=== PATIENT | male | born 1985 | race Caucasian/White ===

== ENCOUNTER 2016-08-19 14:15 | Emergency (ER) | payer MEDICARE, MEDICAID ==
--- NOTE | 2016-08-19 14:39 | ER Document Report ---
ED Medical Screen (RME) - General Stated Complaint: FELL/SHOULDER PAIN Time seen by provider: 14:36 Mode of Arrival: Ambulatory Information source: Patient Notes: 31 yo male slipped going down steps yesterday, fell onto right shoulder, caused increased pain in his bad left shoulder, right shoulder (new) and right thumb. Points to right 1st MCP. TRAVEL OUTSIDE OF THE [place] IN LAST 30 DAYS: No - Related Data Allergies/Adverse Reactions: No Known Allergies Allergy (Verified 08/19/16 14:35) Past Medical History - Immunizations Immunizations up to date: Yes Hx Diphtheria, Pertussis, Tetanus Vaccination: No
--- NOTE | 2016-08-19 16:09 | ER Document Report ---
ED General - General Chief Complaint: Shoulder Pain Stated Complaint: FELL/SHOULDER PAIN Mode of Arrival: Ambulatory Information source: Patient Notes: 31-year-old male presents with complaints of bilateral shoulder pain and thumb pain after a mechanical fall yesterday. Patient notes he has had surgery on his shoulder before denies any neurological deficits denies any weakness numbness TRAVEL OUTSIDE OF THE [place] IN LAST 30 DAYS: No - HPI Onset: Yesterday Onset/Duration: Sudden Quality of pain: Achy Severity: Mild Pain Level: 1 Associated symptoms: Allergy/hay fever Exacerbated by: Movement Relieved by: Denies Similar symptoms previously: Yes Recently seen / treated by doctor: No - Related Data Allergies/Adverse Reactions: No Known Allergies Allergy (Verified 08/19/16 14:35) Past Medical History - General Information source: Patient - Social History Smoking Status: Unknown if Ever Smoked Cigarette use (# per day): No Chew tobacco use (# tins/day): No Smoking Education Provided: No Frequency of alcohol use: Occasional Drug Abuse: None Family History: Reviewed & Not Pertinent Patient has suicidal ideation: No Patient has homicidal ideation: No - Immunizations Immunizations up to date: Yes Hx Diphtheria, Pertussis, Tetanus Vaccination: No Review of Systems - Review of Systems Notes: REVIEW OF SYSTEMS: CONSTITUTIONAL : Denies fever, chills, or sweats. Denies recent illness. EENT: Denies eye, ear, throat, or mouth pain or symptoms. Denies nasal or sinus congestion or discharge. Denies throat, tongue, or mouth swelling or difficulty swallowing. CARDIOVASCULAR: Denies chest pain. Denies palpitations or racing or irregular heart beat. Denies ankle edema. RESPIRATORY: Denies cough, cold, or chest congestion. Denies shortness of breath, difficulty breathing, or wheezing. GASTROINTESTINAL: Denies abdominal pain or distention. Denies nausea, vomiting , or diarrhea. Denies blood in vomitus, stools, or per rectum. Denies black, tarry stools. Denies constipation. GENITOURINARY: Denies difficulty urinating, painful urination, burning, frequency, blood in urine, or discharge. MUSCULOSKELETAL: Admits to bilateral shoulder pain hand pain SKIN: Denies rash, lesions or sores. HEMATOLOGIC : Denies easy bruising or bleeding. LYMPHATIC: Denies swollen, enlarged glands. NEUROLOGICAL: Denies confusion or altered mental status. Denies passing out or loss of consciousness. Denies dizziness or lightheadedness. Denies headache. Denies weakness or paralysis or loss of use of either side. Denies problems with gait or speech. Denies sensory loss, numbness, or tingling. Denies seizures. PSYCHIATRIC: Denies anxiety or stress. Denies depression, suicidal ideation, or homicidal ideation. ALL OTHER SYSTEMS REVIEWED AND NEGATIVE. Dictation was performed using [employer] voice recognition software PHYSICAL EXAMINATION: GENERAL: Well-appearing, well-nourished and in no acute distress. HEAD: Atraumatic, normocephalic. EYES: Pupils equal round and reactive to light, extraocular movements intact, sclera anicteric, conjunctiva are normal. ENT: Nares patent, oropharynx clear without exudates. Moist mucous membranes. NECK: Normal range of motion, supple without lymphadenopathy LUNGS: Breath sounds clear to auscultation bilaterally and equal. No wheezes rales or rhonchi. HEART: Regular rate and rhythm without murmurs ABDOMEN: Soft, nontender, nondistended abdomen. No guarding, no rebound. No masses appreciated. Musculoskeletal: Mild decreased range of motion of bilateral shoulders secondary to pain no deformities noted NEUROLOGICAL: Cranial nerves grossly intact. Normal speech, normal gait. Normal sensory, motor exams PSYCH: Normal mood, normal affect. SKIN: Warm, Dry, normal turgor, no rashes or lesions noted. Physical Exam - Vital signs Vitals: Temp Pulse Resp BP Pulse Ox 98.2 F 71 17 131/80 H 99 08/19/16 14:37 08/19/16 14:37 08/19/16 14:37 08/19/16 14:37 08/19/16 14:37 Course - Re-evaluation Re-evalutation: 08/19/16 16:09 Physical examination noted no significant abnormality, x-rays are normal. Patient will be given follow-up with orthopedics and is otherwise stable for discharge After performing a Medical Screening Examination, I estimate there is LOW risk for INTRACRANIAL HEMORRHAGE, UNSTABLE SPINE FRACTURE, CENTRAL CORD SYNDROME, CAUDA EQUINA, THORACIC AORTIC DISSECTION, PNEUMOTHORAX, PERFORATED BOWEL, RUPTURED ABDOMINAL AORTIC ANEURYSM, ACUTE TENDON RUPTURE, COMPARTMENT SYNDROME, or OPEN FRACTURE, thus I consider the discharge disposition reasonable. Also, there is no evidence or peritonitis, sepsis, or toxicity. The patient and I have discussed the diagnosis and risks, and we agree with discharging home to follow-up with their primary doctor with the understanding that symptoms and presentations can change. We also discussed returning to the Emergency Department immediately if new or worsening symptoms occur. We have discussed the symptoms which are most concerning (e.g., bloody stool, fever, changing or worsening pain, vomiting) that necessitate immediate return. - Vital Signs Vital signs: Temp Pulse Resp BP Pulse Ox 98.2 F 71 17 131/80 H 99 08/19/16 14:37 08/19/16 14:37 08/19/16 14:37 08/19/16 14:37 08/19/16 14:37 Discharge - Discharge Clinical Impression: Hand pain, right Shoulder pain Qualifiers: Laterality: bilateral Chronicity: acute Qualified Code(s): M25.511 - Pain in right shoulder; M25.512 - Pain in left shoulder Condition: Stable Disposition: HOME, SELF-CARE Additional Instructions: Shoulder Injury You have injured your shoulder. This usually results from stretching or tearing of the tendons during trauma. Time and protection are required in order to heal properly. Many injuries are quite disabling, and should be taken seriously. Initial treatment includes cold packs and a sling to rest the shoulder. The physician has assessed the seriousness of your injury, and has outlined a treatment plan. Understand that this treatment may change, depending on how you progress. If a re-examination was recommended, it is important that you follow up as instructed. Some shoulder injuries (such as partial tear of the rotator cuff) are only suspected after you've failed to improve. Call us if there's severe pain, numbness, or loss of function. Prescriptions: Hydrocodone/Acetaminophen [[place] 5-325 mg Tablet] 1 tab PO Q6 #8 tablet Referrals: ANN-MARIE BUNDY DO [ACTIVE STAFF] - Follow up tomorrow
[2016-08-19 16:28] VITALS: BP 139/85
== END 2016-08-19 16:26 | disposition home or self-care (01) ==
LOC: ER 14:15
DX: M25.511 Pain in right shoulder (principal); M25.512 Pain in left shoulder; M79.644 Pain in right finger(s); W19.XXXA Unspecified fall, initial encounter; Z98.890 Other specified postprocedural states
CPT/HCPCS: 99283

== ENCOUNTER 2017-04-07 09:50 | Emergency (ER) | payer MEDICARE, MEDICAID ==
[2017-04-07 10:01] VITALS: BP 155/103
--- NOTE | 2017-04-07 10:13 | ER Document Report ---
HPI - HPI Patient complains to provider of: 1.: I need my ears checked, #2: I want to be tested for a needlestick Onset: Other Severity: None Pain Level: 4 Associated Symptoms: None Exacerbated by: Denies Relieved by: Denies Notes: Patient is a 31-year-old male with history of paranoid schizophrenia. Patient presents with several concerns. #1: He was poked by needle and is concerned about that, #2: He wants his ears checked, #3: He needs to speak with someone regarding witnessing a traumatic event, #4: He believes he is consuming water with parasites. He is not suicidal. He is not homicidal. - ROS ROS below otherwise negative: Yes - DERM Skin Color: Normal Past Medical History - Social History Smoking Status: Current Every Day Smoker Family History: Reviewed & Not Pertinent Patient has suicidal ideation: No Patient has homicidal ideation: No Renal/ Medical History: Denies: Hx Peritoneal Dialysis - Immunizations Immunizations up to date: Yes Hx Diphtheria, Pertussis, Tetanus Vaccination: No Vertical Provider Document - CONSTITUTIONAL Agree With Documented VS: Yes General Appearance: WD/WN, No Apparent Distress - INFECTION CONTROL TRAVEL OUTSIDE OF THE [place] IN LAST 30 DAYS: No - HEENT HEENT: Atraumatic, Normocephalic. negative: Pharyngeal Erythema, Tympanic Membrane Red, Tympanic Membrane Bulging - RESPIRATORY Respiratory: Breath Sounds Normal O2 Sat by Pulse Oximetry: 99 - CARDIOVASCULAR Cardiovascular: Regular Rate - GI/ABDOMEN Gastrointestinal: Abdomen Soft, Abdomen Non-Tender - MUSCULOSKELETAL/EXTREMETIES Musculoskeletal/Extremeties: MAEW, FROM - NEURO Level of Consciousness: Awake, Alert, Appropriate - DERM Notes: There is no visible needlestick noted to his fingertips Course - Re-evaluation Re-evalutation: 04/07/17 10:11 Physical examination is unremarkable. There is no indication for any further intervention at this time. Discussed need for primary care, mental health, and/ or health department evaluation for his various complaints. - Vital Signs Vital signs: Temp Pulse Resp BP Pulse Ox 99.2 F 107 H 16 155/103 H 99 04/07/17 09:58 04/07/17 09:58 04/07/17 09:58 04/07/17 09:58 04/07/17 09:58 Discharge - Discharge Clinical Impression: Otalgia Condition: Good Disposition: HOME, SELF-CARE Instructions: Normal Exam and Workup ([facility]) Additional Instructions: Follow-up with your primary care provider, mental health provider, and/or the health department. Referrals: [facility] [Provider Group] - Follow up as needed
== END 2017-04-07 10:24 | disposition home or self-care (01) ==
LOC: ER 09:50
DX: H92.09 Otalgia, unspecified ear (principal); F17.200 Nicotine dependence, unspecified, uncomplicated
CPT/HCPCS: 99284

== ENCOUNTER 2017-04-07 11:08 | Emergency (ER) | payer MEDICARE, MEDICAID ==
--- NOTE | 2017-04-07 11:10 | ER Document Report ---
ED Psych Disorder / Suicide - General Mode of Arrival: Ambulatory Information source: Patient, Parent - mother - HPI Patient complains to provider of: Hallucinating Associated symptoms: Other - see above <QUINTIN SILVA - Last Filed: 04/07/17 13:37> <VALERIO JEWELL - Last Filed: 04/07/17 13:49> - General Stated Complaint: PSYCH EVALUATION Notes: Patient is a 31 year old male who presents to the ED for evaluation. Patient was seen and evaluated up front in triage and was discharged home. He had come with concern for a needle stick and ear pain that he had been complaining of for a few days. Upon discharge patient became erratic. Patient has a history of paranoia schizophrenia and is off of his meds, he refused to take any medication due to them making him lethargic. Patient has not slept in several days. Patients mother arrived and verified the patient being stuck by a needle. Patient was living with a man who was dying and apparently under hospice care. Patient states that he is also living around drug addicts who steal. He is paranoid about what is going on around him, describing both auditory and visual hallucinations. Patient is living in this home temporarily until they are able to deal with a court situation and move somewhere else. At this time patient is in a very manic state. (QUINTIN SILVA) - Related Data Allergies/Adverse Reactions: No Known Allergies Allergy (Verified 04/07/17 09:58) Home Medications: Current Home Medications No Home Medications 04/07/17 [History] Past Medical History - General Information source: Patient, Parent - mother - Social History Smoking Status: Unknown if Ever Smoked Family History: Reviewed & Not Pertinent Renal/ Medical History: Denies: Hx Peritoneal Dialysis Psychiatric Medical History: Reports: Hx Schizophrenia - with paranoia - Immunizations Immunizations up to date: Yes Hx Diphtheria, Pertussis, Tetanus Vaccination: No <QUINTIN SILVA - Last Filed: 04/07/17 13:37> Review of Systems - Review of Systems Constitutional: See HPI, Other - needle stick EENT: See HPI, Ear pain Cardiovascular: No symptoms reported Respiratory: No symptoms reported Gastrointestinal: No symptoms reported Genitourinary: No symptoms reported Male Genitourinary: No symptoms reported Musculoskeletal: No symptoms reported Skin: No symptoms reported Hematologic/Lymphatic: No symptoms reported Neurological/Psychological: See HPI, Other - paranoia <QUINTIN SILVA - Last Filed: 04/07/17 13:37> Physical Exam - General General appearance: Alert - HEENT Head: Normocephalic, Atraumatic Eyes: Normal Extraocular movements intact: Yes Pupils: PERRL Tympanic membrane: Normal - Respiratory Respiratory status: No respiratory distress - Cardiovascular Rhythm: Regular - Abdominal Distension: No distension - Back Back: Normal - Extremities General upper extremity: Normal inspection, Normal ROM General lower extremity: Normal inspection, Normal ROM - Neurological Neuro grossly intact: Yes - Psychological Associated symptoms: Auditory hallucinations, Paranoid, Tangential speech - Skin Skin Temperature: Warm Skin Moisture: Dry Skin Color: Normal <ARJUN SILVAANDRA - Last Filed: 04/07/17 13:37> - Vital signs Vitals: Temp Pulse Resp BP Pulse Ox 98.8 F 70 16 141/82 H 70 L 04/07/17 11:57 04/07/17 11:57 04/07/17 11:57 04/07/17 11:57 04/07/17 11:57 Course - Laboratory Result Diagrams: 04/07/17 11:50 04/07/17 11:50 <ARJUN SILVAANDRA - Last Filed: 04/07/17 13:37> - Laboratory Result Diagrams: 04/07/17 11:50 04/07/17 11:50 <VALERIO JEWELL - Last Filed: 04/07/17 13:49> - Re-evaluation Re-evalutation: 04/07/17 13:29 04/07/17 13:00 Patient was seen and evaluated with provider in triage and discharged from upfront. Patient had come in concerned that he was poked by a needle and one his ears checked. They did both of those things and discharged him. He became very erratic the nurse had nurse was involved in got me to assist him at the bedside. Patient has a history of schizophrenia and is off of his medication. He has a flight of ideas is very manic and has not slept in several days. He is not suicidal but unlikely able to make his own decisions at this point his mom came and verify that he did not fact get stuck with a needle there is a very bizarre situation which ever living in the home with a man who is dying under hospice care. She was also seen here for needlestick. He says his to his right index finger I cannot see anything significant there but will test him for that. In the process of that we got him admitted as an IVC patient assessed by mental health who agrees he needs to stay here and we will assess him further from a psychiatric standpoint. 04/07/17 13:29 (VALERIO JEWELL) - Vital Signs Vital signs: Temp Pulse Resp BP Pulse Ox 98.8 F 70 16 141/82 H 70 L 04/07/17 11:57 04/07/17 11:57 04/07/17 11:57 04/07/17 11:57 04/07/17 11:57 - Laboratory Laboratory results interpreted by me: 04/07/17 04/07/17 04/07/17 11:50 11:50 12:10 WBC 11.7 H Absolute Neutrophils 8.9 H Sodium 145.3 H Potassium 3.5 L Calcium 10.4 H Total Protein 8.7 H Albumin 5.5 H Urine Protein 30 H Urine Ascorbic Acid 40 H Salicylates < 1.0 L Acetaminophen < 10 L - EKG Interpretation by Me Additional EKG results interpreted by me: 04/07/17 13:31 EKG sinus rhythm at 65 bpm with no acute ST segment elevation or depression ( VALERIO JEWELL) Discharge <QUINTIN SILVA - Last Filed: 04/07/17 13:37> <VALERIO JEWELL - Last Filed: 04/07/17 13:49> - Discharge Clinical Impression: Acute exacerbation of chronic paranoid schizophrenia, Needle stick injury Condition: Stable Disposition: PSYCH HOSP/UNIT Scribe Attestation: 04/07/17 13:29 I personally performed the services described in the documentation reviewed the documentation recorded by my scribe in my presence and it accurately and completely records my words and actions (VALERIO JEWELL) Scribe Documentation - Scribe Written by Kelsie:: kelsie Dupont, 04/07/2017 acting as scribe for :: Albert <QUINTIN SILVA - Last Filed: 04/07/17 13:37>
[2017-04-07 12:06] LABS: ABSOLUTE EOSINOPHILS # (AUTO) 0.1 10^3/uL (0.0-0.6); ABSOLUTE LYMPHOCYTES (AUTO) 1.8 10^3/uL (0.5-4.7); ABSOLUTE MONOCYTES (AUTO) 0.9 10^3/uL (0.1-1.4); ABSOLUTE NEUT (AUTO) 8.9 10^3/uL (1.7-8.2); BASOPHILS % (AUTO) 0.4 % (0-2); EOSINOPHILS % (AUTO) 0.5 % (0-6); HEMATOCRIT 44.7 % (37.9-51.0); HEMOGLOBIN 15.7 g/dL (13.5-17.0); HGB HCT DIFFERENCE 2.4; LYMPHOCYTES % (AUTO) 15.2 % (13-45); MEAN CORPUSCULAR HGB CONC 35.1 g/dL (32.0-36.0); MEAN CORPUSCULAR VOLUME 91 fl (80-97); RED BLOOD COUNT 4.91 10^6/uL (4.35-5.55); RED CELL DISTRIBUTION WIDTH 12.6 % (11.5-14.0); SEGMENTED NEUTROPHILS % (AUTO) 75.9 % (42-78); WHITE BLOOD COUNT 11.7 10^3/uL (4.0-10.5)
[2017-04-07 12:20] LABS: ALANINE AMINOTRANSFERASE 28 U/L (21-72); ALBUMIN 5.5 g/dL (3.5-5.0); ALKALINE PHOSPHATASE 61 U/L (38-126); ANION GAP 15 (5-19); ASPARTATE AMINO TRANSFERASE 20 U/L (17-59); BILIRUBIN,DIRECT 0.4 mg/dL (0.0-0.4); BILIRUBIN,TOTAL 1.1 mg/dL (0.2-1.3); BLOOD UREA NITROGEN 10 mg/dL (7-20); CALCIUM 10.4 mg/dL (8.4-10.2); CARBON DIOXIDE 29 mmol/L (22-30); CHLORIDE 101 mmol/L (98-107); CREATININE RESULT 0.67 mg/dL (0.52-1.25); GLUCOSE 91 mg/dL (75-110); POTASSIUM 3.5 mmol/L (3.6-5.0); SODIUM 145.3 mmol/L (137-145); TOTAL PROTEIN 8.7 g/dL (6.3-8.2)
[2017-04-07 12:47] LABS: ALCOHOL < 10 mg/dL (NONE DETECTED)
[2017-04-07 12:49] LABS: APPEARANCE,URINE CLEAR; BILIRUBIN,URINE NEGATIVE (NEGATIVE); GLUCOSE, URINE NEGATIVE (NEGATIVE); KETONES,URINE NEGATIVE (NEGATIVE); LEUKOCYTE ESTERASE,URINE NEGATIVE (NEGATIVE); NITRITE,URINE NEGATIVE (NEGATIVE); PROTEIN,URINE 30 mg/dL (NEGATIVE); URINE SPECIFIC GRAVITY 1.031; UROBILINOGEN,URINE NEGATIVE mg/dL (<2.0)
[2017-04-07 13:04] LABS: URINE BARBITURATES SCREEN NEGATIVE; URINE METHADONE SCREEN NEGATIVE; URINE OPIATES LOW NEGATIVE; URINE PHENCYCLIDINE SCREEN NEGATIVE
[2017-04-07 14:17] LABS: ADD HIVPANEL? NO; HIV (1 AND 2) ANTIBODY NEGATIVE (NEGATIVE)
[2017-04-07] MEDS ORDERED: CHLORPROMAZINE HCL 50 MG TABLET PO ONE (14:17)
[2017-04-07] MEDS ORDERED: BENZTROPINE MESYLATE 1 MG TABLET PO SCH (14:30)
[2017-04-07] MEDS ORDERED: NICOTINE 21 MG/24 HR PATCH.TD24 TD ONE (21:01)
--- NOTE | 2017-04-07 22:02 | EKG REPORT ---
SEVERITY:- NORMAL ECG - SINUS RHYTHM : Confirmed by: Danay Paige 07-Apr-2017 22:00:59
[2017-04-08] MEDS ORDERED: TRAZODONE HCL 50 MG TABLET PO ONE (01:27)
[2017-04-08] MEDS ORDERED: GABAPENTIN 400 MG CAPSULE PO ONE (01:27)
--- NOTE | 2017-04-08 01:29 | ER Document Report ---
Doctor's Note Notes: 04/08/17 01:28 The nurse asked me to come speak with the patient she is becoming easily agitated. I did speak with the patient. Patient still has some abnormal flight of ideas. He was concerned about his needle stick and I told him that his HIV testing was negative. He then goes on to talk about stem cell transplants and things in college. Some of things he says just do not coincide with each other and are on different topics. He also claims that he does not understand how people can accuse him of auditory hallucinations when no one looked inside his ears. Patient has mother have 2 main concerns. First is that he is having hard time sleeping. His mother says that he has had trazodone in the past and that has helped him with sleep. Mother also mentions that he is on 800 mg 3 times a day of Neurontin. She says that this helps with his leg twitching. Last time he had the Neurontin was yesterday. I will give him trazodone 50 mg. I will give him 400 mg of Neurontin being that we are already giving trazodone at the same time. I did explain this to the patient and the mother and they are agreeable to this and appreciative of this.
[2017-04-08] MEDS ORDERED: HALOPERIDOL LACTATE INJ 5 MG/1 ML VIAL IM ONE (05:45)
[2017-04-08] MEDS ORDERED: LORAZEPAM INJ 2 MG/1 ML VIAL IM ONE (05:45)
--- NOTE | 2017-04-08 05:47 | ER Document Report ---
Doctor's Note Notes: 04/08/17 05:45 Patient has become increasingly agitated. Patient started to threaten the staff. He told the staff that he was going to "slit her throat". I went in the room to talk to the patient is trying to calm him down. Patient started to threaten me. He then started yelling at me because "I did not check his ears. I asked him what he meant. 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 Patient obviously is not making any sense and is very agitated and psychotic. Patient will be given Ativan and Haldol to calm him down. Security is at bedside due to his violent threats towards staff. Dictation of this chart was performed using voice recognition software; therefore, there may be some unintended grammatical errors.
--- NOTE | 2017-04-08 09:54 | ER Document Report ---
Doctor's Note Notes: 04/08/17 09:53 Patient evaluated this morning. Patient is resting comfortably in the bed. Patient has no complaints or concerns at this time. Patient is awaiting disposition.
[2017-04-08 11:54] VITALS: BP 100/61
[2017-04-10 15:32] LABS: HEPATITIS C VIRUS AB 7.2 s/co ratio (0.0-0.9)
--- NOTE | 2017-04-12 07:34 | ER Document Report ---
ED Psych Disorder / Suicide - General Information source: Patient, Parent - mother is bedside, Law Enforcement - [employer]; [employer] TRAVEL OUTSIDE OF THE U.S[place] IN LAST 30 DAYS: No - HPI Patient complains to provider of: Bizarre behavior, Other - paranoia Onset: Other Onset was: Cannot confirm Suicide Risk Factors: Frightened friends/family, Male, Schizophrenia - Schizoaffective Disorder, Bipolar Type, Other - paranoid Situational problems related to: Other - housing area Normal mood: No Associated symptoms: Angry, Anxious, Flight of ideas, Irritable, Labile, Manic, Paranoid, Tangential speech Similar symptoms previously: Yes Recently seen / treated by doctor: No <THEE GARZA - Last Filed: 04/12/17 07:14> <VALERIO JEWELL - Last Filed: 04/13/17 22:04> - General Chief Complaint: Psych Problem Stated Complaint: PSYCH EVALUATION Time Seen by Provider: 04/07/17 12:01 - HPI Notes: Patient is a 31 year old male who presented to the ER, was initially discharged from [facility] and checked in again with multiple complaints. Patient was observed in his room pacing, talking with no one else present. Upon entering the room patient is verbally and visibly upset states he wants to speak with the police and is concerned about the recent of a neighbor. Patient states he believes his neighbor whom he reports was in home hospice was killed by his caregivers. Patient states he has quantities of medications in his car and wants to turn them over to the police. Note ER charge nurse has contacted law enforcement who will present bedside. Patient additionally reports concerns of bugs in the water in his home which she shares with his mother. Patient reports he is diagnosed with paranoid schizophrenia and has not been compliant with his medication regimen which he cannot name at this time. Patient denies that he is suicidal at this time. Patient reports he is fearful for his life in the life of his mother with in the context of the residential setting. Patient reports multiple prior inpatient psychiatric hospitalizations and states that he and his mother moved to [place] to "escape family." Patient's mother is now bedside and patient provides verbal consent to speak with her. Mother states the patient does suffer with schizophrenia and has not been on medications for some time. Mother reports stories congruent with patient reports in regards to the alleged hospice patient and his . At this time KATHRIN Mulu has arrived and are present in the room taking report. This clinician listened patient and mother reported there are numerous concerns about residential environment, neighbors, the allegedly of this individual, medications, etc. Note after law-enforcement left, patient continued to escalate. EDMD Dr. Keita was now bedside and mother was asked to leave as there was concern she was escalating the patient's agitation. Patient was alert and oriented to name and year and location. Mood was manic and labile with congruent affect's. Patient denied suicidal/homicidal ideations , intent, plan, means. Patient denied A/VH; delusions were noted. Thought processes were circumferential. Conversational speech was labile for rate, tone , and prosody. Intellectual abilities were estimated within average range. Attention and focus were poor. Insight, judgment, impulse control are poor. Unspecified Schizophrenia or Other Psychotic Disorder Unspecified Cannabis Use Disorder At this time patient is recommended for involuntary commitment due to concerns that he is a danger to himself and possibly others. Patient presents paranoid with likely delusions regarding his residential setting. In this department he is agitated and labile. Patient has had prior inpatient hospitalizations. This is patient's first episode at [facility]. Patient has not been taking his psychiatric medications and is agreeable to restarting meds however states he is allergic to the majority of medications. Patient did list a plethora of medications in which she states she is allergic. MD made aware of disposition and recommendations and states she is in agreement. 04/08/2017 Conducted brief check-in with patient who is a 31-year-old male under involuntary commitment at [facility] ED. Patient made aware of change in disposition, specifically that he was accepted for inpatient psychiatric placement and will transfer via [facility] today. Patient accepted this information without incident. Patient's mother was notified from the behavioral health pillowcase folder via telephone of his pending transfer. Patient is recommended to continue under IVC and follow through with placement for psychiatric care for safety and stabilization. (THEE GARZA) - Related Data Allergies/Adverse Reactions: No Known Allergies Allergy (Verified 04/07/17 09:58) Home Medications: Current Home Medications No Home Medications 04/07/17 [History] Past Medical History - Social History Family History: Reviewed & Not Pertinent Renal/ Medical History: Denies: Hx Peritoneal Dialysis Psychiatric Medical History: Reports: Hx Schizophrenia - with paranoia - Immunizations Immunizations up to date: Yes Hx Diphtheria, Pertussis, Tetanus Vaccination: No <THEE GARZA - Last Filed: 04/12/17 07:14> - Social History Smoking Status: Unknown if Ever Smoked <VALERIO JEWELL - Last Filed: 04/13/17 22:04> - Vital signs Vitals: Temp Pulse Resp BP Pulse Ox 98.8 F 70 16 141/82 H 70 L 04/07/17 11:57 04/07/17 11:57 04/07/17 11:57 04/07/17 11:57 04/07/17 11:57 Course - Laboratory Result Diagrams: 04/07/17 11:50 04/07/17 11:50 <THEE GARZA - Last Filed: 04/12/17 07:14> - Laboratory Result Diagrams: 04/07/17 11:50 04/07/17 11:50 <VALERIO JEWELL - Last Filed: 04/13/17 22:04> - Vital Signs Vital signs: Temp Pulse Resp BP Pulse Ox 98.9 F 60 16 100/61 98 04/08/17 11:52 04/08/17 11:52 04/08/17 11:52 04/08/17 11:52 04/08/17 11:52 - Laboratory Laboratory results interpreted by me: 04/07/17 04/07/17 04/07/17 11:50 11:50 11:50 WBC 11.7 H Absolute Neutrophils 8.9 H Sodium 145.3 H Potassium 3.5 L Calcium 10.4 H Total Protein 8.7 H Albumin 5.5 H Urine Protein Urine Ascorbic Acid Salicylates < 1.0 L Acetaminophen < 10 L Hepatitis C (JOSE) 7.2 H 04/07/17 12:10 WBC Absolute Neutrophils Sodium Potassium Calcium Total Protein Albumin Urine Protein 30 H Urine Ascorbic Acid 40 H Salicylates Acetaminophen Hepatitis C (OJSE) - EKG Interpretation by Me Additional EKG results interpreted by me: 04/07/17 13:04 04/07/17 13:30 (VALERIO JEWELL) Discharge <THEE GARZA - Last Filed: 04/12/17 07:14> <VALERIO JEWELL - Last Filed: 04/13/17 22:04> - Discharge Clinical Impression: Acute exacerbation of chronic paranoid schizophrenia, Needle stick injury Condition: Stable Disposition: PSYCH HOSP/UNIT Scribe Attestation: 04/07/17 13:03 I personally performed the services described in the documentation reviewed the documentation recorded by my scribe in my presence and it accurately and completely records my words and actions (VALERIO JEWELL)
== END 2017-04-08 12:02 ==
LOC: ER 11:08
DX: F20.0 Paranoid schizophrenia (principal); W46.1XXA Contact with contaminated hypodermic needle, initial encounter; Y92.009 Unspecified place in unspecified non-institutional (private) residence as the place of occurrence of the external cause; Y99.8 Other external cause status; F12.99 Cannabis use, unspecified with unspecified cannabis-induced disorder
CPT/HCPCS: 93005; 99284; 96372; 36415; 80307 ×4; 85025; 80053; 81001; 86701; 86706; 86803; 86804; 93010; A9270 ×4; J1630; J2060; J3490

== ENCOUNTER 2017-09-17 00:18 | Emergency (ER) | payer MEDICARE, MEDICAID ==
--- NOTE | 2017-09-17 00:36 | ER Document Report ---
ED Medical Screen (RME) - General Chief Complaint: Psych Problem Stated Complaint: PSYCH PROBLEM Time Seen by Provider: 09/17/17 00:34 Mode of Arrival: Ambulatory Information source: Patient Notes: 32-year-old male presents to ED for complaint of flulike symptoms headache and fever he states he also has an impacted wisdom tooth. But he came to the ER accompanied by [facility] for psych eval. His mother stated that he was diagnosed with paranoid schizophrenic and was not taking his medication since April she states that he has been verbally aggressive hallucinating and hearing voices and the voices are telling someone is stealing from him and going to kill him. He believes someone is trying to hurt him and is not sleeping attending to his personal hygiene. States he does not know why he was here that he went to bed in the midnight discharge came to get him and bring him into the emergency room for a psych eval. I have greeted and performed a rapid initial assessment of this patient. A comprehensive ED assessment and evaluation of the patient, analysis of test results and completion of medical decision making process will be conducted by an additional ED providers. TRAVEL OUTSIDE OF THE U[place] IN LAST 30 DAYS: No - Related Data Allergies/Adverse Reactions: No Known Allergies Allergy (Verified 04/07/17 09:58) Past Medical History Renal/ Medical History: Denies: Hx Peritoneal Dialysis Psychiatric Medical History: Reports: Hx Schizophrenia - with paranoia - Immunizations Immunizations up to date: Yes Hx Diphtheria, Pertussis, Tetanus Vaccination: No
[2017-09-17 01:04] LABS: ABSOLUTE EOSINOPHILS # (AUTO) 0.2 10^3/uL (0.0-0.6); ABSOLUTE LYMPHOCYTES (AUTO) 3.2 10^3/uL (0.5-4.7); ABSOLUTE MONOCYTES (AUTO) 0.7 10^3/uL (0.1-1.4); BASOPHILS % (AUTO) 0.4 % (0-2); EOSINOPHILS % (AUTO) 2.2 % (0-6); HEMATOCRIT 42.5 % (37.9-51.0); LYMPHOCYTES % (AUTO) 38.9 % (13-45); MEAN CORPUSCULAR HEMOGLOBIN 31.4 pg (27.0-33.4); MEAN CORPUSCULAR HGB CONC 35.2 g/dL (32.0-36.0); MEAN CORPUSCULAR VOLUME 89 fl (80-97); MONOCYTES % (AUTO) 8.9 % (3-13); PLATELET COUNT 196 10^3/uL (150-450); RED BLOOD COUNT 4.76 10^6/uL (4.35-5.55); RED CELL DISTRIBUTION WIDTH 12.9 % (11.5-14.0); SEGMENTED NEUTROPHILS % (AUTO) 49.6 % (42-78); TOTAL CELLS COUNTED % (AUTO) 100 %; WHITE BLOOD COUNT 8.1 10^3/uL (4.0-10.5)
[2017-09-17 01:12] LABS: AMORPHOUS SEDIMENT,URINE TRACE /HPF; APPEARANCE,URINE CLOUDY; BILIRUBIN,URINE NEGATIVE (NEGATIVE); COLOR,URINE YELLOW; GLUCOSE, URINE NEGATIVE (NEGATIVE); KETONES,URINE NEGATIVE (NEGATIVE); LEUKOCYTE ESTERASE,URINE NEGATIVE (NEGATIVE); NITRITE,URINE NEGATIVE (NEGATIVE); PROTEIN,URINE NEGATIVE (NEGATIVE); URINE SPECIFIC GRAVITY 1.018
[2017-09-17 01:20] LABS: URINE AMPHETAMINES SCREEN NEGATIVE; URINE BARBITURATES SCREEN NEGATIVE; URINE BENZODIAZEPINES SCREEN NEGATIVE; URINE COCAINE SCREEN NEGATIVE; URINE MARIJUANA (THC) SCREEN UNCONFIRMED POSITIVE; URINE METHADONE SCREEN NEGATIVE; URINE PHENCYCLIDINE SCREEN NEGATIVE
[2017-09-17 01:36] LABS: ALANINE AMINOTRANSFERASE 26 U/L (21-72); ALBUMIN 4.3 g/dL (3.5-5.0); ALKALINE PHOSPHATASE 52 U/L (38-126); ANION GAP 9 (5-19); ASPARTATE AMINO TRANSFERASE 17 U/L (17-59); BILIRUBIN,DIRECT 0.1 mg/dL (0.0-0.4); BILIRUBIN,TOTAL 0.2 mg/dL (0.2-1.3); BLOOD UREA NITROGEN 6 mg/dL (7-20); CALCIUM 9.5 mg/dL (8.4-10.2); CARBON DIOXIDE 31 mmol/L (22-30); CHLORIDE 103 mmol/L (98-107); GLUCOSE 112 mg/dL (75-110); POTASSIUM 3.9 mmol/L (3.6-5.0); SODIUM 143.2 mmol/L (137-145); TOTAL PROTEIN 6.6 g/dL (6.3-8.2)
[2017-09-17 01:38] LABS: ACETAMINOPHEN < 10 ug/mL (10-30); ALCOHOL < 10 mg/dL (NONE DETECTED); SALICYLATE < 1.0 mg/dL (2.0-20.0)
--- NOTE | 2017-09-17 05:19 | ER Document Report ---
ED General - General Chief Complaint: Psych Problem Stated Complaint: PSYCH PROBLEM Time Seen by Provider: 09/17/17 00:34 Mode of Arrival: Ambulatory Information source: Patient Notes: 32-year-old male history of schizophrenia and bipolar disorder has not been taking his medications since April presents under involuntarily hold for harmful gestures towards others. Patient has been having hallucinations TRAVEL OUTSIDE OF THE [place] IN LAST 30 DAYS: No - HPI Onset: Other Onset/Duration: Persistent Quality of pain: No pain Severity: Mild Pain Level: Denies Associated symptoms: Other Exacerbated by: Denies Relieved by: Denies Similar symptoms previously: Yes Recently seen / treated by doctor: Yes - Related Data Allergies/Adverse Reactions: No Known Allergies Allergy (Verified 04/07/17 09:58) Past Medical History - General Information source: Patient - Social History Smoking Status: Current Every Day Smoker Cigarette use (# per day): Yes Chew tobacco use (# tins/day): No Smoking Education Provided: No Family History: Reviewed & Not Pertinent Patient has suicidal ideation: No - Unclear Patient has homicidal ideation: No - Unclear Renal/ Medical History: Denies: Hx Peritoneal Dialysis Psychiatric Medical History: Reports: Hx Schizophrenia - with paranoia - Immunizations Immunizations up to date: Yes Hx Diphtheria, Pertussis, Tetanus Vaccination: No Review of Systems - Review of Systems Notes: REVIEW OF SYSTEMS: CONSTITUTIONAL : Denies fever, chills, or sweats. Denies recent illness. EENT: Denies eye, ear, throat, or mouth pain or symptoms. Denies nasal or sinus congestion or discharge. Denies throat, tongue, or mouth swelling or difficulty swallowing. CARDIOVASCULAR: Denies chest pain. Denies palpitations or racing or irregular heart beat. Denies ankle edema. RESPIRATORY: Denies cough, cold, or chest congestion. Denies shortness of breath, difficulty breathing, or wheezing. GASTROINTESTINAL: Denies abdominal pain or distention. Denies nausea, vomiting , or diarrhea. Denies blood in vomitus, stools, or per rectum. Denies black, tarry stools. Denies constipation. GENITOURINARY: Denies difficulty urinating, painful urination, burning, frequency, blood in urine, or discharge. MUSCULOSKELETAL: Denies back or neck pain or stiffness. Denies joint pain or swelling. SKIN: Denies rash, lesions or sores. HEMATOLOGIC : Denies easy bruising or bleeding. LYMPHATIC: Denies swollen, enlarged glands. NEUROLOGICAL: Denies confusion or altered mental status. Denies passing out or loss of consciousness. Denies dizziness or lightheadedness. Denies headache. Denies weakness or paralysis or loss of use of either side. Denies problems with gait or speech. Denies sensory loss, numbness, or tingling. Denies seizures. PSYCHIATRIC: Unclear regarding patient suicidal homicidal intentions ALL OTHER SYSTEMS REVIEWED AND NEGATIVE. Dictation was performed using [employer] voice recognition software PHYSICAL EXAMINATION: GENERAL: Well-appearing, well-nourished and in no acute distress. HEAD: Atraumatic, normocephalic. EYES: Pupils equal round and reactive to light, extraocular movements intact, sclera anicteric, conjunctiva are normal. ENT: Nares patent, oropharynx clear without exudates. Moist mucous membranes. NECK: Normal range of motion, supple without lymphadenopathy LUNGS: Breath sounds clear to auscultation bilaterally and equal. No wheezes rales or rhonchi. HEART: Regular rate and rhythm without murmurs ABDOMEN: Soft, nontender, nondistended abdomen. No guarding, no rebound. No masses appreciated. Musculoskeletal: Normal range of motion, no pitting or edema. No cyanosis. NEUROLOGICAL: Cranial nerves grossly intact. Normal speech, normal gait. Normal sensory, motor exams PSYCH: Normal mood, normal affect. SKIN: Warm, Dry, normal turgor, no rashes or lesions noted. Physical Exam - Vital signs Vitals: Temp Pulse Resp BP Pulse Ox 99.0 F 83 14 128/75 H 99 09/17/17 00:25 09/17/17 00:25 09/17/17 00:25 09/17/17 00:25 09/17/17 00:25 Course - Re-evaluation Re-evalutation: 09/17/17 05:33 Patient was evaluated is in no distress, he is resting comfortably, he has been involuntarily committed, as a result I will wait for mental health input prior to disposition, I am having nurse attempt to find patient's home medications which she has been off of for a long period of time to see if we can restart this to improve his symptoms - Vital Signs Vital signs: Temp Pulse Resp BP Pulse Ox 99.0 F 83 14 128/75 H 99 09/17/17 00:25 09/17/17 00:25 09/17/17 00:25 09/17/17 00:25 09/17/17 00:25 - Laboratory Result Diagrams: 09/17/17 00:40 09/17/17 00:40 Laboratory results interpreted by me: 09/17/17 09/17/17 00:40 00:40 Carbon Dioxide 31 H BUN 6 L Glucose 112 H Urine Urobilinogen 4.0 H Urine Ascorbic Acid 40 H Salicylates < 1.0 L Acetaminophen < 10 L - EKG Interpretation by Me EKG shows normal: Sinus rhythm, [place], Intervals, QRS Complexes Discharge - Discharge Clinical Impression: Schizophrenia Qualifiers: Schizophrenia type: unspecified Qualified Code(s): F20.9 - Schizophrenia, unspecified Condition: Stable Disposition: PSYCH HOSP/UNIT Referrals: KATY VARGAS MD [Primary Care Provider] - Follow up as needed
[2017-09-17] MEDS ORDERED: BENZTROPINE MESYLATE 1 MG TABLET PO SCH ×2 (05:45→18:00)
[2017-09-17] MEDS ORDERED: OLANZAPINE 5 MG TABLET PO SCH ×2 (05:45→18:00)
--- NOTE | 2017-09-17 08:35 | EKG REPORT ---
SEVERITY:- NORMAL ECG - SINUS RHYTHM : Confirmed by: Danay Paige 17-Sep-2017 08:33:12
--- NOTE | 2017-09-17 10:04 | ER Document Report ---
Doctor's Note Notes: 09/17/17 10:02 Rounds: Chart reviewed and patient not interviewed because he sleeping very soundly and did not awaken to me calling his name twice. Vital signs were normal except for his heart rate of 48. Labs are all unremarkable except for being positive for marijuana on his drug screen. Patient appears to be medically stable for transfer or discharge. Varun Sparks MD
[2017-09-17 10:28] VITALS: BP 111/63
--- NOTE | 2017-09-18 09:35 | PSYCHOLOGICAL NOTE ---
Psych Note - Psych Note Psych Note: Met with Patient who advised he was unclear as to reason for admission. He advised he has been off his medication for several months following discharge from a psychiatric hospital in [place]. He reported he does not know why he stopped his medication but understands he must take the medication in order to avoid coming to the hospital. Patient reported difficulty with sleeping and stated he lives with his mother in an . He reported they are currently seeking new senior living, hopefully in an apartment and has an appointment to look at one later this afternoon. He reported the medication he received last evening was helpful in calming him down and helping him to sleep. He indicated he was willing to follow up outpatient and continue with taking medications. Spoke with patient's mother who advised the Patient has a lengthy history of mental illness and inpatient psychiatric hospitalizations. She reported a history of medication non-compliance, poor hygiene, paranoia, and increasing verbal aggression. She reported Patient is currently on probation for simple assault which she reports he did not commit. She indicated he was charged with pushing someone but she indicated the Patient never touched the individual (she reportedly was present). She stated the Patient does well when on medication but will stop the medication for an unknown reason. Mother was advised that outpatients appointments with psychiatry and medical practitioners were being made for the Patient. She was thankful. Patient was slightly groggy but oriented. Mood was euthymic and cooperative, affect was blunted. he denied suicidal / homicidal ideation, intent or plan. He denied auditory/visual hallucination and no delusions were noted, however, mother reports a history of psychosis and paranoia. Thought processes were linear, logical, and rational. Conversational speech was within normal limits for rate, tone, and prosody. Intellectual abilities were estimated within normal limits. Attention and concentration were fair. Insight, judgment, and impulse control were fair to poor. Patient was noted to have poor grooming and hygiene. 1. [id number] (F20.9) Schizophrenia, Continuous Impression / Plan: Patient is psychiatrically clear and can be rescinded for discharge. His presentation is clear following administration of antipsychotic medication and receiving a good night's sleep. He indicates willingness to be medication compliant and to follow up on outpatient appointments. He describes appointments scheduled for later in the day and his commitment to his mother. Patient is scheduled to follow up with [facility] and [facility], and provided additional resources. ED Physician in agreement with recommendation and disposition.
== END 2017-09-17 13:05 | disposition home or self-care (01) ==
LOC: ER 00:18
DX: F20.9 Schizophrenia, unspecified (principal); F17.210 Nicotine dependence, cigarettes, uncomplicated
CPT/HCPCS: 93005; 99284; 36415; 80307 ×4; 85025; 80053; 81001; 93010; A9270 ×2

== ENCOUNTER 2017-11-16 03:23 | Emergency (ER) | payer MEDICARE, MEDICAID ==
[2017-11-16] MEDS ORDERED: LORAZEPAM INJ 2 MG/1 ML VIAL IM ONE (04:00)
[2017-11-16] MEDS ORDERED: DIPHENHYDRAMINE HCL 50 MG/ML VIAL IM ONE (04:00)
[2017-11-16] MEDS ORDERED: HALOPERIDOL LACTATE INJ 5 MG/1 ML VIAL IM ONE ×2 (04:00→14:30)
[2017-11-16] MEDS ORDERED: HALOPERIDOL LACTATE INJ 5 MG/1 ML VIAL ONE (04:04)
[2017-11-16] MEDS ORDERED: LORAZEPAM INJ 2 MG/1 ML VIAL ONE (04:04)
[2017-11-16] MEDS ORDERED: DIPHENHYDRAMINE HCL 50 MG/ML VIAL ONE (04:04)
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
[2017-11-16 04:32] LABS: ABSOLUTE BASOPHILS # (AUTO) 0.1 10^3/uL (0.0-0.2); ABSOLUTE EOSINOPHILS # (AUTO) 0.3 10^3/uL (0.0-0.6); ABSOLUTE LYMPHOCYTES (AUTO) 3.6 10^3/uL (0.5-4.7); ABSOLUTE MONOCYTES (AUTO) 1.2 10^3/uL (0.1-1.4); ABSOLUTE NEUT (AUTO) 7.9 10^3/uL (1.7-8.2); BASOPHILS % (AUTO) 0.9 % (0-2); EOSINOPHILS % (AUTO) 1.9 % (0-6); HEMATOCRIT 40.3 % (37.9-51.0); HEMOGLOBIN 13.9 g/dL (13.5-17.0); LYMPHOCYTES % (AUTO) 27.6 % (13-45); MEAN CORPUSCULAR HEMOGLOBIN 31.7 pg (27.0-33.4); MEAN CORPUSCULAR HGB CONC 34.5 g/dL (32.0-36.0); MEAN CORPUSCULAR VOLUME 92 fl (80-97); MONOCYTES % (AUTO) 9.2 % (3-13); PLATELET COUNT 223 10^3/uL (150-450); RED BLOOD COUNT 4.39 10^6/uL (4.35-5.55); RED CELL DISTRIBUTION WIDTH 13.7 % (11.5-14.0); SEGMENTED NEUTROPHILS % (AUTO) 60.4 % (42-78); TOTAL CELLS COUNTED % (AUTO) 100 %; WHITE BLOOD COUNT 13.1 10^3/uL (4.0-10.5)
[2017-11-16 04:58] LABS: ACETAMINOPHEN < 10 ug/mL (10-30); ALANINE AMINOTRANSFERASE 27 U/L (21-72); ALBUMIN 4.6 g/dL (3.5-5.0); ALCOHOL < 10 mg/dL (NONE DETECTED); ALKALINE PHOSPHATASE 65 U/L (38-126); ANION GAP 10 (5-19); ASPARTATE AMINO TRANSFERASE 20 U/L (17-59); BILIRUBIN,DIRECT 0.1 mg/dL (0.0-0.4); BILIRUBIN,TOTAL 0.5 mg/dL (0.2-1.3); BLOOD UREA NITROGEN 11 mg/dL (7-20); CALCIUM 10.1 mg/dL (8.4-10.2); CARBON DIOXIDE 29 mmol/L (22-30); CHLORIDE 104 mmol/L (98-107); GLUCOSE 112 mg/dL (75-110); POTASSIUM 3.5 mmol/L (3.6-5.0); SALICYLATE < 1.0 mg/dL (2.0-20.0); TOTAL PROTEIN 7.1 g/dL (6.3-8.2)
[2017-11-16 06:27] LABS: APPEARANCE,URINE CLEAR; BILIRUBIN,URINE NEGATIVE (NEGATIVE); COLOR,URINE YELLOW; GLUCOSE, URINE NEGATIVE (NEGATIVE); KETONES,URINE NEGATIVE (NEGATIVE); LEUKOCYTE ESTERASE,URINE NEGATIVE (NEGATIVE); NITRITE,URINE NEGATIVE (NEGATIVE); PROTEIN,URINE NEGATIVE (NEGATIVE); URINE SPECIFIC GRAVITY 1.013; UROBILINOGEN,URINE NEGATIVE mg/dL (<2.0)
[2017-11-16 06:37] LABS: URINE AMPHETAMINES SCREEN NEGATIVE; URINE BARBITURATES SCREEN NEGATIVE; URINE BENZODIAZEPINES SCREEN NEGATIVE; URINE COCAINE SCREEN NEGATIVE; URINE MARIJUANA (THC) SCREEN NEGATIVE; URINE METHADONE SCREEN NEGATIVE; URINE PHENCYCLIDINE SCREEN NEGATIVE
--- NOTE | 2017-11-16 10:11 | EKG REPORT ---
SEVERITY:- NORMAL ECG - SINUS RHYTHM : Confirmed by: Danay Paige 16-Nov-2017 10:11:13
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
[2017-11-16] MEDS ORDERED: ZIPRASIDONE MESYLATE INJ/PF 20 MG SDV IM PRN ×2 (13:35→14:43)
[2017-11-16] MEDS ORDERED: BENZTROPINE MESYLATE INJ 2 MG/2 ML AMPULE IM SCH ×2 (13:45→18:00)
[2017-11-16] MEDS ORDERED: HALOPERIDOL LACTATE INJ 5 MG/1 ML VIAL IM SCH ×2 (13:45→18:00)
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
[2017-11-16] MEDS ORDERED: BENZTROPINE MESYLATE INJ 2 MG/2 ML AMPULE IM ONE (14:30)
[2017-11-16] MEDS ORDERED: BENZTROPINE MESYLATE 1 MG TABLET PO ONE (14:57)
[2017-11-16] MEDS ORDERED: NICOTINE 14 MG/24 HR PATCH.TD24 TD ONE (14:57)
[2017-11-16] MEDS ORDERED: HALOPERIDOL 5 MG TABLET PO ONE (14:57)
[2017-11-17] MEDS ORDERED: DIPHENHYDRAMINE HCL 50 MG CAPSULE PO ONE (08:42)
--- NOTE | 2017-11-17 08:53 | PSYCHOLOGICAL NOTE ---
Psych Note - Psych Note Psych Note: Reason for consult: Schizophrenia/ alleged homicidal ideation Eval: 07: 45 am Final Disposition : 0810 Contact Permissions : Gila ( Patient's mother) phone [phone]; [phone] Patient is a 32-year-old male. Patient reports he woke up early this morning because he is hoping he could go to [employer]. Patient reports he was going to [facility] on [address] with his mother. Patient reports he has been a "spiritual person who prays" most of his life. Patient reports his mother told him he needed to come to the hospital because he was talking to her about how God wanted him to talk to her and help her. Patient reports growing up and even now his mother and people at [employer] will ask him if he is seeing and hearing things. Patient reports they ask him if he is hearing things when he starts talking about how he can speak about prophecies. Patient reports while growing up he needed to go to the doctor/get medicines because his mom "took care of him ". Patient reports he is willing to take the medications he needs so that he could go home and hopefully go to [employer]. Patient reports he lives with his mother and she "helps" him. Patient reports growing up he has always been close to her and stated the worst thing he had ever done growing up was called her a "stupido". Patient reports he would like clinician to contact his mother so that she can come get him. Patient reports he was up last night praying to God, and finds it hard to get sleep in the hospital. Patient reports he wants to hopefully be able to take a shower and have some breakfast. Patient reports he sees a doctor regularly. Clinician utilized solution focused brief therapy techniques to assist patient in identifying strengths and solution to current problem. Patient identified his "spirituality" as his strength. Patient identified going to [employer] as a means of coping with his illness (schizophrenia). Patient reported wanting to use prayer to help him with his relationship with his mother. Patient reported his relationship with his mother is important to him. Clinician observed patient was polite, complimenting clinician on appearance ( e.g. nice hair, did you do it yourself). Clinician observed patient was concerned with his hygiene and politely requested clinician ask nurse if he could shower/ get items for hygiene. Clinician observed patient was visibly shaking/ tremors in hands/arms. Clinician observed patient is not displaying aggression/agitation and is cooperative with assessment. Clinician attempted to contact patient's mother several times at approximately 0730, 0930, 12:00 and 1500 . Per shift report previous clinician on shift yesterday was also unable to get in contact with patient's mother for collateral information/coordinate care. Clinician attempted to contact patient's mother again throughout the day to coordinate discharge plan. Medication recommendations made by [facility] contracted psychiatric provider Dr. Geo MD includes: 1. Continue Haldol 5 mg twice a day by mouth 2. Continue Cogentin 1 mg daily by mouth 3. Begin Haldol decanoate 100 mg IM today Diagnosis: 295.90 (F20.9) schizophrenia per history Impression/plan: Recommendation to rescind involuntary commitment. Patient is psychiatrically cleared for discharge. Medication recommendations were made to assist with patient's symptoms of schizophrenia ( e.g. yesterday patient had grandiose delusions stating he was from "[place] " and was insinuating his importance). Patient was allegedly unmedicated and allegedly endorsing homicidal ideation to his mother per IVC report yesterday. Today patient has improved, he is able to identify goals, future oriented thinking, and is cooperative/polite. Clinician observed patient is concerned about hygiene and future plans which indicates that he is able to complete daily basic living skills. Clinician observed patient's facial expression and ability to have a conversation are appropriate/ intact. Recommendation for patient to follow-up with [facility] mobile crisis management team for an additional assessment upon discharge. Clinician attempted to provide discharge plan/recommendation with patient's mother Gila but was unable to get in contact with her. Attending physician in agreement with plan. Consulted with Dr. Esteves regarding the management and care of patient.
[2017-11-17] MEDS ORDERED: LORAZEPAM 1 MG TABLET PO ONE (09:10)
--- NOTE | 2017-11-17 09:58 | ER Document Report ---
Doctor's Note Notes: 11/17/17 09:53 Medical rounds: Chart reviewed and patient interviewed briefly. Vital signs are normal. Laboratory values are satisfactory. Patient apparently had a dystonic reaction to Haldol earlier this morning, but was treated appropriately and is now improved. He is alert, oriented, and cooperative. He is medically stable pending disposition.
[2017-11-17] MEDS ORDERED: HALOPERIDOL 5 MG TABLET PO SCH (10:00)
[2017-11-17] MEDS ORDERED: BENZTROPINE MESYLATE 1 MG TABLET PO SCH (10:00)
[2017-11-17] MEDS ORDERED: HALOPERIDOL DECANOATE INJ 100 MG/1 ML VIAL IM ONE (10:00)
[2017-11-17 16:29] VITALS: BP 135/77
== END 2017-11-17 15:45 | disposition home or self-care (01) ==
LOC: ER 03:23
DX: F20.9 Schizophrenia, unspecified (principal); Z79.899 Other long term (current) drug therapy
CPT/HCPCS: 93005; 99285; 96372; 36415; 80307 ×4; 85025; 80053; 81001; 93010; A9270 ×4; J0515; J1631; J1200; J1630; J2060; J3486

== ENCOUNTER 2018-05-20 15:48 | Emergency (ER) | payer MEDICARE, MEDICAID ==
[2018-05-20 16:31] LABS: ABSOLUTE EOSINOPHILS # (AUTO) 0.1 10^3/uL (0.0-0.6); ABSOLUTE LYMPHOCYTES (AUTO) 2.9 10^3/uL (0.5-4.7); BASOPHILS % (AUTO) 0.4 % (0-2); EOSINOPHILS % (AUTO) 1.2 % (0-6); HEMATOCRIT 38.5 % (37.9-51.0); HEMOGLOBIN 13.6 g/dL (13.5-17.0); LYMPHOCYTES % (AUTO) 23.7 % (13-45); MEAN CORPUSCULAR HEMOGLOBIN 31.7 pg (27.0-33.4); MEAN CORPUSCULAR HGB CONC 35.3 g/dL (32.0-36.0); MEAN CORPUSCULAR VOLUME 90 fl (80-97); MONOCYTES % (AUTO) 8.4 % (3-13); PLATELET COUNT 195 10^3/uL (150-450); RED BLOOD COUNT 4.29 10^6/uL (4.35-5.55); RED CELL DISTRIBUTION WIDTH 12.7 % (11.5-14.0); SEGMENTED NEUTROPHILS % (AUTO) 66.3 % (42-78); TOTAL CELLS COUNTED % (AUTO) 100 %
[2018-05-20 16:46] LABS: APPEARANCE,URINE CLEAR; BILIRUBIN,URINE NEGATIVE (NEGATIVE); COLOR,URINE YELLOW; GLUCOSE, URINE NEGATIVE (NEGATIVE); KETONES,URINE NEGATIVE (NEGATIVE); LEUKOCYTE ESTERASE,URINE NEGATIVE (NEGATIVE); NITRITE,URINE NEGATIVE (NEGATIVE); PROTEIN,URINE NEGATIVE (NEGATIVE)
[2018-05-20 16:48] LABS: URINE SPECIFIC GRAVITY 1.019
[2018-05-20 16:51] LABS: ALANINE AMINOTRANSFERASE 61 U/L (21-72); ALBUMIN 4.3 g/dL (3.5-5.0); ALKALINE PHOSPHATASE 55 U/L (38-126); ANION GAP 8 (5-19); ASPARTATE AMINO TRANSFERASE 42 U/L (17-59); BILIRUBIN,DIRECT 0.3 mg/dL (0.0-0.4); BILIRUBIN,TOTAL 0.7 mg/dL (0.2-1.3); BLOOD UREA NITROGEN 9 mg/dL (7-20); CALCIUM 9.6 mg/dL (8.4-10.2); CARBON DIOXIDE 28 mmol/L (22-30); CHLORIDE 103 mmol/L (98-107); GLUCOSE 95 mg/dL (75-110); POTASSIUM 3.7 mmol/L (3.6-5.0); SODIUM 138.6 mmol/L (137-145); TOTAL PROTEIN 7.2 g/dL (6.3-8.2)
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
[2018-05-20 18:09] LABS: URINE BARBITURATES SCREEN NEGATIVE; URINE BENZODIAZEPINES SCREEN UNCONFIRMED POSITIVE; URINE COCAINE SCREEN NEGATIVE; URINE MARIJUANA (THC) SCREEN NEGATIVE; URINE METHADONE SCREEN NEGATIVE; URINE PHENCYCLIDINE SCREEN NEGATIVE
--- NOTE | 2018-05-20 19:53 | EKG REPORT ---
SEVERITY:- ABNORMAL ECG - SINUS RHYTHM PROLONGED QT INTERVAL : Confirmed by: Kaitlin Francois MD 20-May-2018 19:52:23
--- NOTE | 2018-05-21 09:01 | ER Document Report ---
Doctor's Note Notes: Patient seen and examined. Prior notes reviewed. Patient has a past medical history of schizophrenia, is currently on medications for this, he did admit to using methamphetamine 3 days ago, which may have triggered his symptoms of paranoia. He states he is feeling much better today and feels safe, and that no one is out to get him. He reports that he slept okay last night. Complains of mild headache, but otherwise feels much better. He is asking for his home medication gabapentin this morning, and asked if you wanted some Tylenol for his headache, which he would like as well, will recheck to the patient's mother who the patient lives with, and will have him follow-up with [facility].
[2018-05-21] MEDS ORDERED: ACETAMINOPHEN 325 MG TABLET PO ONE (10:10)
[2018-05-21] MEDS ORDERED: GABAPENTIN 400 MG CAPSULE PO ONE (10:10)
[2018-05-21 10:59] VITALS: BP 111/63
== END 2018-05-21 11:12 | disposition home or self-care (01) ==
LOC: ER 15:48
DX: F20.0 Paranoid schizophrenia (principal); Z79.899 Other long term (current) drug therapy; F15.10 Other stimulant abuse, uncomplicated; R51 Headache
CPT/HCPCS: 93005; 99285; 36415; 80307 ×2; 85025; 80053; 81001; 93010; A9270 ×2

== ENCOUNTER 2019-04-17 14:50 | Emergency (ER) | payer MEDICARE, MEDICAID ==
[2019-04-17 15:14] LABS: ABSOLUTE BASOPHILS # (AUTO) 0.1 10^3/uL (0.0-0.2); ABSOLUTE EOSINOPHILS # (AUTO) 0.1 10^3/uL (0.0-0.6); ABSOLUTE LYMPHOCYTES (AUTO) 1.4 10^3/uL (0.5-4.7); ABSOLUTE MONOCYTES (AUTO) 1.3 10^3/uL (0.1-1.4); ABSOLUTE NEUT (AUTO) 12.9 10^3/uL (1.7-8.2); BASOPHILS % (AUTO) 0.4 % (0-2); EOSINOPHILS % (AUTO) 0.6 % (0-6); HEMATOCRIT 49.3 % (37.9-51.0); HEMOGLOBIN 16.9 g/dL (13.5-17.0); MEAN CORPUSCULAR HEMOGLOBIN 31.1 pg (27.0-33.4); MEAN CORPUSCULAR HGB CONC 34.2 g/dL (32.0-36.0); MEAN CORPUSCULAR VOLUME 91 fl (80-97); PLATELET COUNT 231 10^3/uL (150-450); RED BLOOD COUNT 5.42 10^6/uL (4.35-5.55); RED CELL DISTRIBUTION WIDTH 12.4 % (11.5-14.0); TOTAL CELLS COUNTED % (AUTO) 100 %; WHITE BLOOD COUNT 15.8 10^3/uL (4.0-10.5)
[2019-04-17 15:32] LABS: ALBUMIN 5.6 g/dL (3.5-5.0); ALKALINE PHOSPHATASE 74 U/L (38-126); ANION GAP 18 (5-19); ASPARTATE AMINO TRANSFERASE 37 U/L (17-59); BILIRUBIN,DIRECT 0.4 mg/dL (0.0-0.4); BILIRUBIN,TOTAL 0.7 mg/dL (0.2-1.3); BLOOD UREA NITROGEN 5 mg/dL (7-20); CALCIUM 10.8 mg/dL (8.4-10.2); CARBON DIOXIDE 23 mmol/L (22-30); CHLORIDE 100 mmol/L (98-107); GLUCOSE 228 mg/dL (75-110); POTASSIUM 3.9 mmol/L (3.6-5.0)
[2019-04-17 15:39] LABS: ACETAMINOPHEN < 10 ug/mL (10-30); ALCOHOL < 10 mg/dL (NONE DETECTED); SALICYLATE < 1.0 mg/dL (2.0-20.0)
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
[2019-04-17 17:27] LABS: APPEARANCE,URINE CLOUDY; BILIRUBIN,URINE NEGATIVE (NEGATIVE); COLOR,URINE YELLOW; GLUCOSE, URINE NEGATIVE (NEGATIVE); KETONES,URINE TRACE mg/dL (NEGATIVE); LEUKOCYTE ESTERASE,URINE NEGATIVE (NEGATIVE); NITRITE,URINE NEGATIVE (NEGATIVE); PROTEIN,URINE 100 mg/dL (NEGATIVE); URINE SPECIFIC GRAVITY 1.013
[2019-04-17 17:36] LABS: URINE BARBITURATES SCREEN NEGATIVE; URINE BENZODIAZEPINES SCREEN UNCONFIRMED POSITIVE; URINE MARIJUANA (THC) SCREEN UNCONFIRMED POSITIVE; URINE METHADONE SCREEN NEGATIVE; URINE PHENCYCLIDINE SCREEN NEGATIVE
[2019-04-17] MEDS: BENZTROPINE MESYLATE 1 MG TABLET PO SCH (17:38)
[2019-04-17] MEDS: CHLORPROMAZINE HCL 50 MG TABLET PO SCH ×3 (17:38→23:48)
[2019-04-17 17:41] LABS: URINE AMPHETAMINES SCREEN UNCONFIRMED POSITIVE; URINE COCAINE SCREEN UNCONFIRMED POSITIVE
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
[2019-04-17 19:59] LABS: CREATINE KINASE 435 U/L (55-170)
[2019-04-17] MEDS ORDERED: NICOTINE 21 MG/24 HR PATCH.TD24 TD ONE (23:04)
[2019-04-17] MEDS ORDERED: IBUPROFEN 600 MG TABLET PO ONE (23:31)
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
[2019-04-18] MEDS: CHLORPROMAZINE HCL 50 MG TABLET PO SCH (06:01)
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
--- NOTE | 2019-04-18 09:47 | ER Document Report ---
Doctor's Note Notes: 04/18/19 09:46 Rounds: Chart reviewed and patient interviewed. Patient is being evaluated for paranoia and hallucinations. Also has polydrug abuse. Lab studies were significant for a white count of 15,800 without an apparent infectious site. Also, blood sugar 228. Drug screen was positive for amphetamines, cocaine, be nzos, and want to. Vital signs are all essentially normal. Patient appears to be medically stable for transfer or discharge. Dana Sparks MD
[2019-04-18] MEDS: BENZTROPINE MESYLATE 1 MG TABLET PO SCH (09:49)
[2019-04-18 10:11] VITALS: BP 137/74
--- NOTE | 2019-04-19 18:44 | EKG REPORT ---
SEVERITY:- BORDERLINE ECG - SINUS TACHYCARDIA BORDERLINE LEFT AXIS DEVIATION BORDERLINE INFERIOR Q WAVES : Confirmed by: Danay Paige 19-Apr-2019 18:43:07
== END 2019-04-18 10:15 | disposition home or self-care (01) ==
LOC: ER 14:50
DX: S61.210A Laceration without foreign body of right index finger without damage to nail, initial encounter (principal); S71.011A Laceration without foreign body, right hip, initial encounter; W26.0XXA Contact with knife, initial encounter; F20.9 Schizophrenia, unspecified; F22 Delusional disorders; F19.10 Other psychoactive substance abuse, uncomplicated; F17.290 Nicotine dependence, other tobacco product, uncomplicated
CPT/HCPCS: 93005; 99285; 36415; 80307 ×4; 82550; 85025; 80053; 81001; 93010; A9270 ×5; J3490

== ENCOUNTER 2019-05-01 01:32 | Emergency (ER) | payer MEDICARE, MEDICAID ==
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
[2019-05-01 04:38] LABS: ABSOLUTE BASOPHILS # (AUTO) 0.1 10^3/uL (0.0-0.2); ABSOLUTE LYMPHOCYTES (AUTO) 1.1 10^3/uL (0.5-4.7); ABSOLUTE MONOCYTES (AUTO) 0.7 10^3/uL (0.1-1.4); ABSOLUTE NEUT (AUTO) 10.1 10^3/uL (1.7-8.2); BASOPHILS % (AUTO) 0.5 % (0-2); HEMATOCRIT 42.4 % (37.9-51.0); HEMOGLOBIN 14.7 g/dL (13.5-17.0); MEAN CORPUSCULAR HEMOGLOBIN 31.3 pg (27.0-33.4); MEAN CORPUSCULAR HGB CONC 34.6 g/dL (32.0-36.0); MEAN CORPUSCULAR VOLUME 91 fl (80-97); MONOCYTES % (AUTO) 6.1 % (3-13); PLATELET COUNT 173 10^3/uL (150-450); RED BLOOD COUNT 4.68 10^6/uL (4.35-5.55); RED CELL DISTRIBUTION WIDTH 13.2 % (11.5-14.0); SEGMENTED NEUTROPHILS % (AUTO) 84.4 % (42-78); TOTAL CELLS COUNTED % (AUTO) 100 %
[2019-05-01 04:54] VITALS: BP 145/94
[2019-05-01 04:57] LABS: ALBUMIN 4.8 g/dL (3.5-5.0); ALKALINE PHOSPHATASE 58 U/L (38-126); ANION GAP 12 (5-19); ASPARTATE AMINO TRANSFERASE 25 U/L (17-59); BILIRUBIN,DIRECT 0.2 mg/dL (0.0-0.4); BILIRUBIN,TOTAL 0.5 mg/dL (0.2-1.3); BLOOD UREA NITROGEN 10 mg/dL (7-20); CALCIUM 9.7 mg/dL (8.4-10.2); CARBON DIOXIDE 24 mmol/L (22-30); CHLORIDE 105 mmol/L (98-107); GLUCOSE 95 mg/dL (75-110); POTASSIUM 4.6 mmol/L (3.6-5.0); TOTAL PROTEIN 7.4 g/dL (6.3-8.2)
[2019-05-01 05:02] LABS: ACETAMINOPHEN < 10 ug/mL (10-30); ALCOHOL < 10 mg/dL (NONE DETECTED); SALICYLATE < 1.0 mg/dL (2.0-20.0)
[2019-05-01 05:16] LABS: APPEARANCE,URINE SLIGHTLY-CLOUDY; BILIRUBIN,URINE SMALL (NEGATIVE); COLOR,URINE AMBER; GLUCOSE, URINE NEGATIVE (NEGATIVE); KETONES,URINE TRACE mg/dL (NEGATIVE); LEUKOCYTE ESTERASE,URINE NEGATIVE (NEGATIVE); NITRITE,URINE NEGATIVE (NEGATIVE); PROTEIN,URINE 100 mg/dL (NEGATIVE); URINE SPECIFIC GRAVITY 1.026
[2019-05-01 05:21] LABS: URINE AMPHETAMINES SCREEN UNCONFIRMED POSITIVE; URINE BARBITURATES SCREEN NEGATIVE; URINE BENZODIAZEPINES SCREEN UNCONFIRMED POSITIVE; URINE COCAINE SCREEN NEGATIVE; URINE MARIJUANA (THC) SCREEN UNCONFIRMED POSITIVE; URINE METHADONE SCREEN NEGATIVE; URINE PHENCYCLIDINE SCREEN NEGATIVE
[2019-05-01] MEDS ORDERED: GABAPENTIN 400 MG CAPSULE PO SCH (06:00)
--- NOTE | 2019-05-01 07:36 | EKG REPORT ---
SEVERITY:- NORMAL ECG - SINUS RHYTHM : Confirmed by: Greyson Machuca MD 01-May-2019 07:36:11
== END 2019-05-01 10:54 | disposition home or self-care (01) ==
LOC: ER 01:32
DX: F29 Unspecified psychosis not due to a substance or known physiological condition (principal); F19.10 Other psychoactive substance abuse, uncomplicated; F17.200 Nicotine dependence, unspecified, uncomplicated
CPT/HCPCS: 93005; 36415; 80307 ×4; 85025; 80053; 81001; 93010; A9270; 99285

== ENCOUNTER 2019-07-15 17:03 | Emergency (ER) | payer MEDICARE, MEDICAID ==
[2019-07-15] MEDS ORDERED: NORMAL SALINE 1000 ML 1,000 ML IV ONE ×2 (17:44→20:50)
[2019-07-15 19:05] LABS: ABSOLUTE LYMPHOCYTES (AUTO) 0.8 10^3/uL (0.5-4.7); ABSOLUTE MONOCYTES (AUTO) 1.4 10^3/uL (0.1-1.4); ABSOLUTE NEUT (AUTO) 12.9 10^3/uL (1.7-8.2); BASOPHILS % (AUTO) 0.3 % (0-2); EOSINOPHILS % (AUTO) 0.1 % (0-6); HEMATOCRIT 47.3 % (37.9-51.0); HEMOGLOBIN 16.3 g/dL (13.5-17.0); LYMPHOCYTES % (AUTO) 5.4 % (13-45); MEAN CORPUSCULAR HEMOGLOBIN 31.6 pg (27.0-33.4); MEAN CORPUSCULAR HGB CONC 34.5 g/dL (32.0-36.0); MEAN CORPUSCULAR VOLUME 92 fl (80-97); PLATELET COUNT 177 10^3/uL (150-450); RED BLOOD COUNT 5.16 10^6/uL (4.35-5.55); RED CELL DISTRIBUTION WIDTH 12.4 % (11.5-14.0); SEGMENTED NEUTROPHILS % (AUTO) 85.2 % (42-78); TOTAL CELLS COUNTED % (AUTO) 100 %; WHITE BLOOD COUNT 15.1 10^3/uL (4.0-10.5)
[2019-07-15 19:10] LABS: ALBUMIN 5.1 g/dL (3.5-5.0); ALCOHOL 58 mg/dL (NONE DETECTED); ALKALINE PHOSPHATASE 60 U/L (38-126); ANION GAP 14 (5-19); ASPARTATE AMINO TRANSFERASE 30 U/L (17-59); BILIRUBIN,DIRECT 0.2 mg/dL (0.0-0.4); BILIRUBIN,TOTAL 0.9 mg/dL (0.2-1.3); BLOOD UREA NITROGEN 9 mg/dL (7-20); CALCIUM 9.9 mg/dL (8.4-10.2); CARBON DIOXIDE 21 mmol/L (22-30); CHLORIDE 106 mmol/L (98-107); CREATINE KINASE 450 U/L (55-170); GLUCOSE 166 mg/dL (75-110); POTASSIUM 4.3 mmol/L (3.6-5.0); TOTAL PROTEIN 8.1 g/dL (6.3-8.2)
[2019-07-15 19:12] LABS: ACETAMINOPHEN < 10 ug/mL (10-30); SALICYLATE < 1.0 mg/dL (2.0-20.0)
--- NOTE | 2019-07-16 00:05 | EKG REPORT ---
SEVERITY:- BORDERLINE ECG - SINUS TACHYCARDIA BORDERLINE INFERIOR Q WAVES BORDERLINE PROLONGED QT INTERVAL : Confirmed by: Kaitlin Francois MD 16-Jul-2019 00:04:12
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
[2019-07-16] MEDS ORDERED: NICOTINE 14 MG/24 HR PATCH.TD24 TD ONE (05:58)
[2019-07-16 07:05] LABS: APPEARANCE,URINE CLEAR; BILIRUBIN,URINE NEGATIVE (NEGATIVE); COLOR,URINE YELLOW; GLUCOSE, URINE NEGATIVE (NEGATIVE); KETONES,URINE NEGATIVE (NEGATIVE); LEUKOCYTE ESTERASE,URINE NEGATIVE (NEGATIVE); NITRITE,URINE NEGATIVE (NEGATIVE); PROTEIN,URINE NEGATIVE (NEGATIVE); URINE SPECIFIC GRAVITY 1.015; UROBILINOGEN,URINE NEGATIVE mg/dL (<2.0)
[2019-07-16 07:27] LABS: URINE AMPHETAMINES SCREEN NEGATIVE; URINE BARBITURATES SCREEN NEGATIVE; URINE METHADONE SCREEN NEGATIVE; URINE PHENCYCLIDINE SCREEN NEGATIVE
[2019-07-16 07:32] LABS: URINE BENZODIAZEPINES SCREEN UNCONFIRMED POSITIVE; URINE COCAINE SCREEN UNCONFIRMED POSITIVE; URINE MARIJUANA (THC) SCREEN UNCONFIRMED POSITIVE
--- NOTE | 2019-07-16 09:48 | ER Document Report ---
Doctor's Note Notes: 07/16/19 09:47 Chart review. Rounded on patient. Patient is calm. Just finished eating breakfast reports that he is ready to go home. Reports he has all his meds at home that he needs. Denies suicidal or homicidal ideations. PHYSICAL EXAMINATION: GENERAL: Well-appearing and in no acute distress HEAD: Atraumatic, normocephalic. EYES: extraocular movements intact, sclera anicteric, conjunctiva are normal. ENT: nares patent,. Moist mucous membranes. NECK: Normal range of motion, supple without lymphadenopathy LUNGS: CTAB and equal. No wheezes rales or rhonchi. HEART: Regular rate and rhythm without murmurs ABDOMEN: Soft, no tenderness. No guarding, no rebound EXTREMITIES: Normal range of motion, no pitting edema. NEUROLOGICAL: Cranial nerves grossly intact. Normal sensory/motor exams. PSYCH: Normal mood, normal affect. SKIN: Warm, Dry, normal turgor, no rashes or lesions noted
--- NOTE | 2019-07-16 10:08 | PSYCHOLOGICAL NOTE ---
Psych Note - Psych Note Date seen by psych provider: 07/16/19 Time seen by psych provider: 09:20 Psych Note: Reason for Consult: Hallucinations This 34-year-old paranoid schizophrenic male presents to the emergency department today for complaints of paranoid hallucinations. Patient states that he seeing people that are "outside trying to get into my house to harm or pb me or my mom". Patient states that he has not taken his night time medications yet but states he has not missed any medications. Patient reports he is no longer scared to go home and states that he feels that he was more nervous because he had the rent money on him. He states that when he looks out the window he sees things he tells his mom and she called 911 just to make sure that they are safe. Patient denies using cocaine clinician notes patient's toxicology screening indicates cocaine. Patient is highly encouraged to stop using illegal substances as this increases symptom breakout. He continued to confirm that he did not take his evening dose of medications. He denies wanting any assistance with medication adjustments. Patient is alert and orientated to person, place, time and circumstance. Patient's mood is euthymic with congruent affect. Patient denies suicidal and homicidal ideation. Delusions are absent and behaviors congruent with an intact reality based presentation I organized and linear thought process. Eye contact was well-maintained. Conversational speech is within normal rate, tone and prosody. Intellectual abilities appear to be within the average range. Attention and concentration are currently good. Insight, judgment, impulse control are fair. Diagnosis Stimulant disorder; Cocaine sedative disorder; benzodiazepine amphetamine disorder; methamphetamine per history Medication recommendations per [facility]'s contracted psychiatrist Dr Geo ESTEVEZ are as follows No medication recommendations at this time Impression/plan: Patient is cleared from acute psychiatric services. Patient is no longer demonstrating behavior of responding to internal stimuli. Patient is calm with organized linear conversation. Denies any thoughts of wanting to harm himself or others and denies any concern that people are after him. This patient was well known by this clinician and department. His presentation and paranoid delusions of someone trying to break into his house is chronic. Patient was highly encouraged to abstain from using illegal substances and to obtain outpatient substance abuse treatment. He has an outpatient mental health provider with [facility]. He declines assistance in changing medications or needing further assistance for detox. Dr. Esteves was consulted on the care and management of this patient; attending physician is in agreement with recommendations and disposition.
[2019-07-16 10:58] VITALS: BP 131/79
== END 2019-07-16 10:50 | disposition home or self-care (01) ==
LOC: ER 17:03
DX: F20.0 Paranoid schizophrenia (principal); Z79.899 Other long term (current) drug therapy; F14.10 Cocaine abuse, uncomplicated; F15.10 Other stimulant abuse, uncomplicated; F12.10 Cannabis abuse, uncomplicated; R00.0 Tachycardia, unspecified; F17.200 Nicotine dependence, unspecified, uncomplicated; Z88.8 Allergy status to other drugs, medicaments and biological substances
CPT/HCPCS: 93005; 99285; 96360; 36415; 80307 ×4; 82550; 85025; 80053; 81001; 93010; J7030; A9270

== ENCOUNTER 2019-08-31 16:38 | Emergency (ER) | payer MEDICARE, MEDICAID ==
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
[2019-08-31] MEDS ORDERED: HALOPERIDOL LACTATE INJ 5 MG/1 ML VIAL ONE (17:29)
[2019-08-31] MEDS ORDERED: DIPHENHYDRAMINE HCL 50 MG/ML VIAL ONE (17:29)
[2019-08-31] MEDS ORDERED: LORAZEPAM INJ 2 MG/1 ML VIAL IM ONE (17:29)
[2019-08-31] MEDS ORDERED: DIPHENHYDRAMINE HCL 50 MG/ML VIAL IM ONE (17:30)
[2019-08-31] MEDS ORDERED: NORMAL SALINE 1000 ML 1,000 ML IV ONE (17:42)
--- NOTE | 2019-08-31 17:45 | EKG REPORT ---
SEVERITY:- OTHERWISE NORMAL ECG - SINUS TACHYCARDIA : Confirmed by: Greyson Machuca MD 31-Aug-2019 17:44:55
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
[2019-08-31 17:48] LABS: APPEARANCE,URINE CLEAR; BILIRUBIN,URINE NEGATIVE (NEGATIVE); COLOR,URINE COLORLESS; GLUCOSE, URINE NEGATIVE (NEGATIVE); KETONES,URINE NEGATIVE (NEGATIVE); LEUKOCYTE ESTERASE,URINE NEGATIVE (NEGATIVE); NITRITE,URINE NEGATIVE (NEGATIVE); PROTEIN,URINE NEGATIVE (NEGATIVE); URINE SPECIFIC GRAVITY 1.001; UROBILINOGEN,URINE NEGATIVE mg/dL (<2.0)
[2019-08-31 18:00] LABS: ABSOLUTE LYMPHOCYTES (AUTO) 1.8 10^3/uL (0.5-4.7); ABSOLUTE MONOCYTES (AUTO) 1.2 10^3/uL (0.1-1.4); ABSOLUTE NEUT (AUTO) 15.8 10^3/uL (1.7-8.2); BASOPHILS % (AUTO) 0.1 % (0-2); EOSINOPHILS % (AUTO) 0.1 % (0-6); HEMATOCRIT 43.8 % (37.9-51.0); HEMOGLOBIN 15.2 g/dL (13.5-17.0); LYMPHOCYTES % (AUTO) 9.5 % (13-45); MEAN CORPUSCULAR HEMOGLOBIN 31.6 pg (27.0-33.4); MEAN CORPUSCULAR HGB CONC 34.7 g/dL (32.0-36.0); MEAN CORPUSCULAR VOLUME 91 fl (80-97); MONOCYTES % (AUTO) 6.5 % (3-13); PLATELET COUNT 220 10^3/uL (150-450); RED BLOOD COUNT 4.81 10^6/uL (4.35-5.55); RED CELL DISTRIBUTION WIDTH 12.5 % (11.5-14.0); SEGMENTED NEUTROPHILS % (AUTO) 83.8 % (42-78); TOTAL CELLS COUNTED % (AUTO) 100 %; WHITE BLOOD COUNT 18.9 10^3/uL (4.0-10.5)
[2019-08-31 18:04] LABS: URINE AMPHETAMINES SCREEN NEGATIVE; URINE BARBITURATES SCREEN NEGATIVE; URINE BENZODIAZEPINES SCREEN NEGATIVE; URINE COCAINE SCREEN NEGATIVE; URINE MARIJUANA (THC) SCREEN NEGATIVE; URINE METHADONE SCREEN NEGATIVE; URINE PHENCYCLIDINE SCREEN NEGATIVE
[2019-08-31 18:14] LABS: ALBUMIN 5.3 g/dL (3.5-5.0); ALKALINE PHOSPHATASE 65 U/L (38-126); ASPARTATE AMINO TRANSFERASE 35 U/L (17-59); BILIRUBIN,TOTAL 0.3 mg/dL (0.2-1.3); BLOOD UREA NITROGEN 10 mg/dL (7-20); GLUCOSE 118 mg/dL (75-110); POTASSIUM 3.5 mmol/L (3.6-5.0); TOTAL PROTEIN 8.1 g/dL (6.3-8.2)
[2019-08-31 18:19] LABS: CARBON DIOXIDE 17 mmol/L (22-30); CHLORIDE 98 mmol/L (98-107)
[2019-08-31 18:26] LABS: ACETAMINOPHEN < 10 ug/mL (10-30); ALCOHOL < 10 mg/dL (NONE DETECTED); ANION GAP 27 (5-19); SALICYLATE < 1.0 mg/dL (2.0-20.0)
[2019-08-31] MEDS ORDERED: POTASSIUM CHLORIDE 20 MEQ PACKET PO ONE (18:46)
[2019-08-31 19:13] LABS: CREATINE KINASE 302 U/L (55-170)
[2019-08-31] MEDS ORDERED: NICOTINE 21 MG/24 HR PATCH.TD24 TD ONE (20:32)
[2019-08-31 20:44] LABS: ANION GAP 11 (5-19); BLOOD UREA NITROGEN 9 mg/dL (7-20); CALCIUM 9.3 mg/dL (8.4-10.2); CHLORIDE 100 mmol/L (98-107); GLUCOSE 78 mg/dL (75-110)
[2019-08-31 20:48] LABS: CARBON DIOXIDE 28 mmol/L (22-30)
[2019-08-31] MEDS ORDERED: ACETAMINOPHEN 325 MG TABLET PO ONE (21:08)
[2019-08-31 21:24] LABS: HEMATOCRIT 38.3 % (37.9-51.0); HEMOGLOBIN 13.4 g/dL (13.5-17.0); MEAN CORPUSCULAR HEMOGLOBIN 31.4 pg (27.0-33.4); MEAN CORPUSCULAR HGB CONC 34.9 g/dL (32.0-36.0); MEAN CORPUSCULAR VOLUME 90 fl (80-97); PLATELET COUNT 181 10^3/uL (150-450); RED BLOOD COUNT 4.26 10^6/uL (4.35-5.55); RED CELL DISTRIBUTION WIDTH 12.6 % (11.5-14.0); WHITE BLOOD COUNT 12.7 10^3/uL (4.0-10.5)
[2019-08-31] MEDS: GABAPENTIN 400 MG CAPSULE PO SCH (21:24)
[2019-09-01] MEDS: GABAPENTIN 400 MG CAPSULE PO SCH ×3 (06:02→22:01)
[2019-09-01] MEDS: HYDROXYZINE PAMOATE 50 MG CAPSULE PO PRN ×2 (06:02→22:01)
[2019-09-01] MEDS ORDERED: ACETAMINOPHEN 325 MG TABLET PO ONE (10:39)
[2019-09-01] MEDS ORDERED: IBUPROFEN 600 MG TABLET PO ONE (10:39)
--- NOTE | 2019-09-01 10:39 | ER Document Report ---
Doctor's Note Notes: 09/01/19 10:38 PHYSICAL EXAMINATION: GENERAL: Appears well, healthy, well-nourished, no acute distress. LUNGS: Equal breath sounds bilaterally and clear to auscultation. No wheezes rales or rhonchi. CARDIOVASCULAR: S1-S2, regular rate, regular rhythm. Radial pulses 2+, normal. ABDOMEN: Normoactive bowel sounds. Soft, nontender, no guarding, no rebound tenderness, and no masses palpated. PSYCH: Normal mood, normal affect. Patient denies any suicidal or homicidal ideation. Patient states that he feels much better today. At this time, mental health would like to keep him for 1 more night to reevaluate his situation. I was told by the primary RN that the patient had spoke to his mother over the phone, but the mother kept arguing with the patient. At this time, the patient has no complaints and he is asking for ibuprofen and Tylenol for pain.
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
[2019-09-01] MEDS ORDERED: NICOTINE 14 MG/24 HR PATCH.TD24 TD ONE (21:32)
[2019-09-02] MEDS: GABAPENTIN 400 MG CAPSULE PO SCH (06:28)
--- NOTE | 2019-09-02 09:18 | ER Document Report ---
Doctor's Note Notes: 09/02/19 09:16 Pt resting on stretcher. Patient states he does not understand why he is going to [facility]. Patient states that he just feels dehydrated. Patient states that he does not feel well although cannot put into words why he does not feel well. Patient denies any pain, any chest discomfort any headache or sore throat symptoms. Patient denies any cough or cold symptoms. Patient denies any abdominal pain, nausea, vomiting or diarrhea. PHYSICAL EXAMINATION: GENERAL: no acute distress. HEAD: Atraumatic, normocephalic. EYES: sclera anicteric, conjunctiva are normal. ENT: nares patent. Moist mucous membranes. NECK: Normal range of motion, supple without lymphadenopathy LUNGS: CTAB and equal. No wheezes rales or rhonchi. HEART: Regular rate and rhythm without murmurs ABDOMEN: Soft, nontender, normal bowel sounds. EXTREMITIES: Normal range of motion BACK: No midline tenderness, no step-off or deformity. NEUROLOGICAL: Cranial nerves grossly intact. Normal speech. Normal gait. PSYCH: Normal mood, normal affect. SKIN: Warm, face mildly diaphoretic, normal turgor, no rashes or lesions noted 09/02/19 09:18 Review of nurse notes vital signs and diagnostic evaluation completed. Patient is currently awaiting transfer at this time. 09/02/19 09:23 Vital signs stable, patient medically clear for transfer.
[2019-09-02 09:19] VITALS: BP 145/90
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
== END 2019-09-02 09:35 ==
LOC: ER 16:38
DX: F29 Unspecified psychosis not due to a substance or known physiological condition (principal); F17.200 Nicotine dependence, unspecified, uncomplicated; Z78.1 Physical restraint status
CPT/HCPCS: 93005; 99285; 96372; 96360; 36415; 80307 ×4; 82550; 85025; 80053; 81001; 93010; A9270 ×4; J1200; J2060; J7030; J3490

== ENCOUNTER 2019-09-13 19:55 | Emergency (ER) | payer MEDICARE, MEDICAID ==
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
[2019-09-13 20:56] LABS: ABSOLUTE EOSINOPHILS # (AUTO) 0.1 10^3/uL (0.0-0.6); ABSOLUTE LYMPHOCYTES (AUTO) 1.8 10^3/uL (0.5-4.7); ABSOLUTE MONOCYTES (AUTO) 1.1 10^3/uL (0.1-1.4); ABSOLUTE NEUT (AUTO) 6.5 10^3/uL (1.7-8.2); BASOPHILS % (AUTO) 0.2 % (0-2); EOSINOPHILS % (AUTO) 0.6 % (0-6); HEMATOCRIT 39.8 % (37.9-51.0); HEMOGLOBIN 13.9 g/dL (13.5-17.0); LYMPHOCYTES % (AUTO) 18.9 % (13-45); MEAN CORPUSCULAR HEMOGLOBIN 31.8 pg (27.0-33.4); MEAN CORPUSCULAR HGB CONC 34.9 g/dL (32.0-36.0); MEAN CORPUSCULAR VOLUME 91 fl (80-97); MONOCYTES % (AUTO) 11.4 % (3-13); PLATELET COUNT 180 10^3/uL (150-450); RED BLOOD COUNT 4.37 10^6/uL (4.35-5.55); RED CELL DISTRIBUTION WIDTH 12.8 % (11.5-14.0); SEGMENTED NEUTROPHILS % (AUTO) 68.9 % (42-78); TOTAL CELLS COUNTED % (AUTO) 100 %; WHITE BLOOD COUNT 9.4 10^3/uL (4.0-10.5)
[2019-09-13 21:19] LABS: ACETAMINOPHEN < 10 ug/mL (10-30); ALBUMIN 4.6 g/dL (3.5-5.0); ALCOHOL < 10 mg/dL (NONE DETECTED); ALKALINE PHOSPHATASE 61 U/L (38-126); ANION GAP 12 (5-19); ASPARTATE AMINO TRANSFERASE 21 U/L (17-59); BILIRUBIN,DIRECT 0.3 mg/dL (0.0-0.4); BILIRUBIN,TOTAL 0.5 mg/dL (0.2-1.3); BLOOD UREA NITROGEN 13 mg/dL (7-20); CALCIUM 9.4 mg/dL (8.4-10.2); CARBON DIOXIDE 27 mmol/L (22-30); CHLORIDE 98 mmol/L (98-107); GLUCOSE 85 mg/dL (75-110); POTASSIUM 3.7 mmol/L (3.6-5.0); SALICYLATE < 1.0 mg/dL (2.0-20.0); TOTAL PROTEIN 7.4 g/dL (6.3-8.2)
[2019-09-13 22:34] LABS: APPEARANCE,URINE SLIGHTLY-CLOUDY; BILIRUBIN,URINE NEGATIVE (NEGATIVE); COLOR,URINE YELLOW; GLUCOSE, URINE NEGATIVE (NEGATIVE); KETONES,URINE TRACE mg/dL (NEGATIVE); LEUKOCYTE ESTERASE,URINE NEGATIVE (NEGATIVE); NITRITE,URINE NEGATIVE (NEGATIVE); PROTEIN,URINE NEGATIVE (NEGATIVE); URINE SPECIFIC GRAVITY 1.016; UROBILINOGEN,URINE NEGATIVE mg/dL (<2.0)
[2019-09-13 22:45] LABS: URINE BARBITURATES SCREEN NEGATIVE; URINE COCAINE SCREEN NEGATIVE; URINE MARIJUANA (THC) SCREEN NEGATIVE; URINE METHADONE SCREEN NEGATIVE; URINE PHENCYCLIDINE SCREEN NEGATIVE
[2019-09-13 22:50] LABS: URINE AMPHETAMINES SCREEN UNCONFIRMED POSITIVE; URINE BENZODIAZEPINES SCREEN UNCONFIRMED POSITIVE
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
[2019-09-13] MEDS ORDERED: DIPHENHYDRAMINE HCL 50 MG/ML VIAL IM ONE (23:54)
[2019-09-13] MEDS ORDERED: LORAZEPAM INJ 2 MG/1 ML VIAL IM ONE (23:54)
[2019-09-14] MEDS ORDERED: ZIPRASIDONE MESYLATE INJ/PF 20 MG SDV IM ONE (00:10)
--- NOTE | 2019-09-14 00:18 | EKG REPORT ---
SEVERITY:- OTHERWISE NORMAL ECG - SINUS TACHYCARDIA : Confirmed by: Danay Paige 14-Sep-2019 00:17:18
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
--- NOTE | 2019-09-14 12:39 | ER Document Report ---
Doctor's Note Notes: 09/14/19 12:31 Patient is a 34-year-old male with a history of paranoid schizophrenia. Patient was evaluated by our medical staff yesterday and medically cleared. The mental health team did perform an evaluation and have cleared him from a psychiatric standpoint and IVC paperwork was rescinded. Per the nursing staff and mental health team the patient did arrive to the emergency department and was paranoid. Upon my evaluation today patient is not having any auditory or visual hallucinations. Patient has good eye contact and is able to explain the events that occurred yesterday. Patient reports that he does live with his mother. Patient reports that he feels at times his mother is a trigger for him. He states that his sister has told him he could come and live with her but she lives in [place] and that is something he is trying to figure out. Patient reports that he has a history of orbital blowout fracture on the right that is not new. He states that he speaks with a doctor over the phone who prescribes him Adderall and Subutex he cannot remember the prescribing physician's name. Patient denies methamphetamine use. Patient was positive for amphetamines as well as benzodiazepines. Patient denies use of these medications. Patient reports he does use marijuana occasionally. Per the mental health note patient does have a history of recreational drug use and abuse. Patient explained to me that he does follow Dr. Osuna at [facility] and is prescribed Cogentin, gabapentin, clonidine, trazodone and Saphris. Patient reports he does have these medications at home with his last dose of medications being last night. Patient states yesterday he heard his mother speaking on the telephone. He states that she was talking about him and this made him paranoid. He states that he did have 2 knives in his hand. He states that he did not attempt to harm himself or his mother that the he was carrying these around as he felt like this was protecting him if something were to happen. Per the mental health note there was a gun that was locked into a safe in his house but this has been removed by the police. Patient reports has been on multiple medications in the past for his schizophrenia but he feels like the combination of medications he is on currently is working for him. Patient was discharged from [facility] on September 12. Mental health is concerned that the positive result of methamphetamines and benzos did trigger his paranoid schizophrenia. Patient continues to deny recreational drug use. I did inform him that if he uses any medications that are not prescribed this can interfere with his prescribed medications and cause adverse reactions such as auditory and visual hallucinations and worsening of symptoms. I did inform the patient to refrain from any recreational drug use. At this time patient denies SI, HI, hallucinations. Patient stable for discharge at this time. If patient unable to find a ride [facility] can be contacted to provide him with one per Jack. Nurse is aware of this. Patient's vital signs stable at time of discharge.
[2019-09-14 13:49] VITALS: BP 138/87
== END 2019-09-14 13:52 | disposition home or self-care (01) ==
LOC: ER 19:55
DX: F20.0 Paranoid schizophrenia (principal)
CPT/HCPCS: 93005; 36415; 80307 ×4; 85025; 80053; 81001; 93010; J1200; J2060; J3486; 96372; 99285

== ENCOUNTER 2019-09-14 23:52 | Emergency (ER) | payer MEDICARE, MEDICAID ==
[2019-09-15] MEDS ORDERED: ZIPRASIDONE MESYLATE INJ/PF 20 MG SDV IM ONE (00:14)
[2019-09-15] MEDS ORDERED: ACETAMINOPHEN 325 MG TABLET PO ONE (01:10)
[2019-09-15 02:13] LABS: ABSOLUTE BASOPHILS # (AUTO) 0.1 10^3/uL (0.0-0.2); ABSOLUTE EOSINOPHILS # (AUTO) 0.1 10^3/uL (0.0-0.6); ABSOLUTE NEUT (AUTO) 9.5 10^3/uL (1.7-8.2); BASOPHILS % (AUTO) 1.1 % (0-2); EOSINOPHILS % (AUTO) 0.5 % (0-6); HEMATOCRIT 41.3 % (37.9-51.0); HEMOGLOBIN 14.3 g/dL (13.5-17.0); LYMPHOCYTES % (AUTO) 8.5 % (13-45); MEAN CORPUSCULAR HEMOGLOBIN 31.7 pg (27.0-33.4); MEAN CORPUSCULAR HGB CONC 34.6 g/dL (32.0-36.0); MEAN CORPUSCULAR VOLUME 92 fl (80-97); MONOCYTES % (AUTO) 8.5 % (3-13); PLATELET COUNT 180 10^3/uL (150-450); RED BLOOD COUNT 4.51 10^6/uL (4.35-5.55); RED CELL DISTRIBUTION WIDTH 12.8 % (11.5-14.0); SEGMENTED NEUTROPHILS % (AUTO) 81.4 % (42-78); TOTAL CELLS COUNTED % (AUTO) 100 %; WHITE BLOOD COUNT 11.7 10^3/uL (4.0-10.5)
[2019-09-15 02:37] LABS: ALBUMIN 4.7 g/dL (3.5-5.0); ALKALINE PHOSPHATASE 68 U/L (38-126); ANION GAP 15 (5-19); ASPARTATE AMINO TRANSFERASE 34 U/L (17-59); BILIRUBIN,DIRECT 0.3 mg/dL (0.0-0.4); BILIRUBIN,TOTAL 0.9 mg/dL (0.2-1.3); BLOOD UREA NITROGEN 16 mg/dL (7-20); CALCIUM 9.6 mg/dL (8.4-10.2); CARBON DIOXIDE 26 mmol/L (22-30); CHLORIDE 97 mmol/L (98-107); GLUCOSE 77 mg/dL (75-110); POTASSIUM 4.1 mmol/L (3.6-5.0); TOTAL PROTEIN 7.7 g/dL (6.3-8.2)
[2019-09-15 02:42] LABS: ACETAMINOPHEN < 10 ug/mL (10-30); ALCOHOL < 10 mg/dL (NONE DETECTED); SALICYLATE < 1.0 mg/dL (2.0-20.0)
[2019-09-15] MEDS ORDERED: NORMAL SALINE 1000 ML 1,000 ML IV ONE ×2 (02:58→03:05)
--- NOTE | 2019-09-15 03:05 | ER Document Report ---
ED General - General Chief Complaint: Psych Problem Stated Complaint: PSYCH/MEDICAL CLEARANCE Time Seen by Provider: 09/15/19 02:57 Primary Care Provider: MURALI JULIEN MD [Primary Care Provider] - Follow up as needed Mode of Arrival: Ambulatory Information source: Patient TRAVEL OUTSIDE OF THE U.S. IN LAST 30 DAYS: No - HPI Onset: This morning Onset/Duration: Gradual Quality of pain: No pain Severity: Moderate Pain Level: Denies Associated symptoms: Body/muscle aches, Fever, Other - hallucinations Exacerbated by: Denies Relieved by: Denies Similar symptoms previously: No Recently seen / treated by doctor: Yes - patient was apparently just hospitalized for psych reasons Notes: 34 year old male with a history of Schizophrenia brought in by EMS for agitation, paranoia, and hallucinations. The patient tells me he feels there is some confusion with what happened tonight and he tells me he called the police. Nursing however told me that the patient's mother called the police. The patient is under an IVC at the moment. The patient was febrile to 101.5 in triage. When asked if the patient has been having fevers at home he says he has felt hot at times and has had some chills and body aches over the last several days. The patient denies sick contacts but he says he just left a Psych Facility in the last week. - Related Data Allergies/Adverse Reactions: chlorpromazine [From Thorazine] Allergy (Severe, Verified 09/01/19 02:20) Hives haloperidol [From Haldol] Allergy (Verified 05/01/19 02:07) risperidone [From Risperdal] Allergy (Verified 05/01/19 02:07) Past Medical History - General Information source: Patient - Social History Smoking Status: Unknown if Ever Smoked Frequency of alcohol use: None Drug Abuse: None Family History: Reviewed & Not Pertinent Patient has suicidal ideation: No Patient has homicidal ideation: No Renal/ Medical History: Denies: Hx Peritoneal Dialysis Psychiatric Medical History: Reports: Hx Schizophrenia - with paranoia Past Surgical History: Reports: Hx Oral Surgery, Hx Orthopedic Surgery - left rotator cuff/labrum repair, Other - right orbital "blow out" repair - Immunizations Immunizations up to date: Yes Hx Diphtheria, Pertussis, Tetanus Vaccination: No Review of Systems - Review of Systems Constitutional: Fever, Weakness EENT: No symptoms reported Cardiovascular: No symptoms reported Respiratory: No symptoms reported Gastrointestinal: No symptoms reported Genitourinary: No symptoms reported Male Genitourinary: No symptoms reported Musculoskeletal: No symptoms reported Skin: No symptoms reported Hematologic/Lymphatic: No symptoms reported Neurological/Psychological: Hallucinations. denies: Homicidal ideation, Suicidal ideation Physical Exam - Vital signs Vitals: Temp Pulse Resp BP Pulse Ox 101.2 F H 151 H 24 H 187/107 H 94 09/15/19 00:11 09/15/19 00:11 09/15/19 00:11 09/15/19 00:11 09/15/19 00:11 Course - Re-evaluation Re-evalutation: 09/15/19 04:31 The patient is here fro paranoia and hallucinations. The patient was febrile in triage but no infectious source was identified. Patient treated in the ER with Tylenol and Fluids and his HR and Temp came down. Patient is medically cleared. He likely has a viral syndrome. Dispo per psych. Patient signed out to oncoming ER provider at shift change since psych hadnt seen the patient yet. Of note, the patient never had a headache, neck pain, cough, sore throat, urinary symptoms, diarrhea. - Vital Signs Vital signs: Temp Pulse Resp BP Pulse Ox 98.4 F 151 H 24 H 187/107 H 94 09/15/19 03:24 09/15/19 00:11 09/15/19 00:11 09/15/19 00:11 09/15/19 00:11 - Laboratory Result Diagrams: 09/15/19 01:50 09/15/19 01:50 Laboratory results interpreted by me: 09/15/19 09/15/19 01:50 01:50 WBC 11.7 H Lymph % (Auto) 8.5 L Absolute Neuts (auto) 9.5 H Seg Neutrophils % 81.4 H Chloride 97 L Salicylates < 1.0 L Acetaminophen < 10 L - EKG Interpretation by Ny EKG shows normal: Sinus rhythm, Clark, Intervals, QRS Complexes Rate: Tachycardia Rhythm: NSR Discharge - Discharge Clinical Impression: Schizophrenia Qualifiers: Schizophrenia type: other Qualified Code(s): F20.89 - Other schizophrenia; F20.8 - Other schizophrenia Condition: Stable Disposition: PSYCH HOSP/UNIT Referrals: MURALI JULIEN MD [Primary Care Provider] - Follow up as needed
[2019-09-15 04:24] LABS: A TYPE INFLUENZA AG NEGATIVE (NEGATIVE); B INFLUENZA AG NEGATIVE (NEGATIVE)
--- NOTE | 2019-09-15 04:33 | RADIOLOGY REPORT (SQ) ---
PA and lateral chest radiograph: 09/15/2019 3:32 AM DIRECTOR OF LITIGATION Comparison: None available Indication: 34-year old patient with concern for pneumonia. Findings: The cardiomediastinal silhouette is normal in size.No pneumothorax is seen. There are airspace opacities seen at the right lower lobe. No discrete pleural effusion is apparent. Impression: There are airspace opacities in the right lower lobe concerning for infection.
[2019-09-15 08:02] LABS: APPEARANCE,URINE CLEAR; BILIRUBIN,URINE NEGATIVE (NEGATIVE); COLOR,URINE YELLOW; GLUCOSE, URINE NEGATIVE (NEGATIVE); KETONES,URINE 80 mg/dL (NEGATIVE); LEUKOCYTE ESTERASE,URINE NEGATIVE (NEGATIVE); NITRITE,URINE NEGATIVE (NEGATIVE); PROTEIN,URINE NEGATIVE (NEGATIVE); UROBILINOGEN,URINE NEGATIVE mg/dL (<2.0)
[2019-09-15 08:19] LABS: URINE BARBITURATES SCREEN NEGATIVE; URINE BENZODIAZEPINES SCREEN NEGATIVE; URINE COCAINE SCREEN NEGATIVE; URINE MARIJUANA (THC) SCREEN NEGATIVE; URINE METHADONE SCREEN NEGATIVE; URINE PHENCYCLIDINE SCREEN NEGATIVE
[2019-09-15] MEDS ORDERED: AZITHROMYCIN 250 MG TABLET PO ONE (08:33)
--- NOTE | 2019-09-15 13:17 | ER Document Report ---
Doctor's Note Notes: 09/15/19 13:15 Progress note: Patient is a 34-year-old white male with a past medical history of psychiatric disorder who presents with delusions and hallucinations. It was noted upon arrival that he was febrile and found to have a pneumonia, met sepsis criteria and was worked up and treated as such. He is currently being held and monitored here in the emergency department. Upon my evaluation he seems to have a bizarre affect, laughs inappropriately and has tangential thinking. He appears diaphoretic. I requested a new set of vital signs including temperature. He was given Rocephin and addition to the Zithromax that he previously received. Psychiatry/mental health consulted on him today and advised at this time he will continue to be held, possible psychiatric clearance for discharge later however at this time I agree that we do not feel it is appropriate as the patient behavior is bizarre and unstable. We will continue to monitor.
[2019-09-15] MEDS ORDERED: CEFTRIAXONE 1 GM/D5W RTU 1 GM/50 ML RTUPB IV ONE (14:00)
--- NOTE | 2019-09-15 14:02 | PSYCHOLOGICAL NOTE ---
Psych Note - Psych Note Date seen by psych provider: 09/15/19 Time seen by psych provider: 08:50 Psych Note: Reason for Consult: Psychosis 34 year old male presented to [facility] ED via EMS for agitation, paranoia, and hallucinations. Patient reports he got into an argument with his mother last night and she called the police. He reports she is the problem, not him. He continues to report he last had adderrall 3 days ago when he has the benzodiazipine. He denies he had more since he was discharged yesterday from [facility]. He reports he had the knife for his protection. He states he did not attempt to harm anyone. Patient is alert and orientated to person, place, time and circumstance. Patient's mood is euthymic; however, affect. Patient denies suicidal and homicidal ideation. Patient is not demonstrating any behaviors of responding to internal stimuli. Clinician notes when patient is in his room alone he talks to himself however when speaking with clinician he is organized and linear, eye contact was well-maintained, and conversational speech is within normal rate, tone and prosody. Intellectual abilities appear to be within the average range. Attention and concentration are currently good. Insight, judgment, impulse control are fair. Patient has presenting baseline paranoid delusions that appear to be directly connected to his misuse of prescription medications and illegal substances. Chart review Conduct: Patient was evaluated and discharged 09/14/2019 discharge plan is as follows Impression/plan: Patient is cleared from acute psychiatric services. Patient is no longer demonstrating behavior of responding to internal stimuli. Patient is calm with organized linear conversation. Denies any thoughts of wanting to harm himself or others and denies any concern that people are after him. This patient was well known by this clinician and department. His presentation and paranoid delusions of someone trying to break into his house is chronic. Patient was highly encouraged to abstain from using illegal substances. The patient has a history of substance abuse, to include methamphetamine. The patient reports he is prescribed Adderall and an unknown benzodiazepine. A review of both the patient's chart and [place] controlled substance reporting system indicates the patient does not have any narcotics perscribed to him, to include benzodiazepines and his reported Adderall. In fact, the last narcotic that was prescribed to the patient was Ambien back in September 2018. There is significant concern the patient's misuse of prescription medications and illegal substances causes the patient's reported and observed symptom breakthrough (ie his paranoid delusions). Toxicology screening indicates the patient has a probable positive for amphetamines and benzodiazepines. There is also concern for what appears to be a pattern of the patient not using his positive coping skills because his visits to [facility] ED frequently coincides with a verbal altercation/discord with his mother. The patient was just inpatient for psychiatric treatment for 2 weeks and discharged from [facility] the day before the petition (discharged 09/12/2019; petition 09/13/2019). It would not be therapeutically appropriate for the patient to go inpatient psychiatric treatment. The patient needs to engage in outpatient mental health services to build his daily living skills, such as interpreting his environment, understanding his triggers, and building his positive coping skills. The patient also needs to engage in substance abuse treatment. The patient identifies his mother as a trigger and discloses plan of moving in with his sister. He confirms he has spoken to her about this. Clinician engaged in psychoeducation on the importance of taking only medications that are prescribed and to abstain from illegal substance use. All weapons from the home have been removed, to include the gun that police confiscated. Patient is unwilling to explore substance abuse treatment. Patient is his own guardian and has the capability of developing his plan of care. Dr. Esteves was consulted on the care and management of this patient; attending physician is in agreement with recommendations and disposition. Toxicology screening indicates patient has probable positive for amphetamine. Clinician notes patient is no longer positive for benzodiazepine as he was it during previous [facility] visit yesterday. Attempted contact with patient's mother; left voice mail. Medication recommendations per [facility]'s contracted psychiatrist Dr. Geo ESTEVEZ are as follows Geodon 20mg Once Cogentin 1mg Once Impression/Plan: Clinician notes patient again presents after altercation with his mother occurs. Patient has a probable positive for amphetamine. Patient reports he last use Adderall the same time he used benzodiazepine i.e. 2 days ago. Clinician notes patient is negative for benzodiazepine. Today's presentation to [facility] ED again after an altercation with his mother supports previous concerns yesterday that the patient is using the ED as a maladaptive coping skill of avoiding consequences and problems. Patient just discharged from [facility] and inpatient psychiatric treatment continues to be inappropriate for this patient. The patient continues to misuse amphetamines (indicated by the continued probable positive). Patient needs to follow up with his outpatient provider, [facility] for therapeutic services and substance abuse treatment. Patient's mother did not return clinician phone call to discuss concerns. Dr. Esteves was consulted on the care and management of this patient; attending physician is in agreement with recommendations and disposition.
[2019-09-15] MEDS ORDERED: BENZTROPINE MESYLATE 1 MG TABLET PO ONE (14:23)
[2019-09-15] MEDS ORDERED: ZIPRASIDONE HCL 20 MG CAPSULE PO ONE (14:23)
--- NOTE | 2019-09-15 16:20 | EKG REPORT ---
SEVERITY:- OTHERWISE NORMAL ECG - SINUS TACHYCARDIA : Confirmed by: Kaitlin Francois MD 15-Sep-2019 16:18:34
[2019-09-15] MEDS ORDERED: KETOROLAC TROMETHAMINE INJ/PF 30 MG/1 ML SDV IM ONE (18:00)
[2019-09-15 18:40] VITALS: BP 126/88
== END 2019-09-15 19:38 | disposition home or self-care (01) ==
LOC: ER 23:52
DX: F25.0 Schizoaffective disorder, bipolar type (principal); F15.10 Other stimulant abuse, uncomplicated; J18.9 Pneumonia, unspecified organism; M79.10 Myalgia, unspecified site; R50.9 Fever, unspecified
CPT/HCPCS: 93005; 36415; 87040; 80307 ×4; 83605; 85025; 80053; 81001; 87804; 71046; 93010; A9270 ×4; J1885; J3486; J7030; J0696; 87086; 96361; 96365; 96372; 99285

== ENCOUNTER 2019-10-02 00:56 | Emergency (ER) | payer MEDICARE, OTHER ==
[2019-10-02 01:40] LABS: ABSOLUTE EOSINOPHILS # (AUTO) 0.1 10^3/uL (0.0-0.6); ABSOLUTE MONOCYTES (AUTO) 0.7 10^3/uL (0.1-1.4); BASOPHILS % (AUTO) 0.2 % (0-2); EOSINOPHILS % (AUTO) 0.6 % (0-6); HEMATOCRIT 40.5 % (37.9-51.0); HEMOGLOBIN 14.1 g/dL (13.5-17.0); LYMPHOCYTES % (AUTO) 30.4 % (13-45); MEAN CORPUSCULAR HEMOGLOBIN 32.1 pg (27.0-33.4); MEAN CORPUSCULAR HGB CONC 34.8 g/dL (32.0-36.0); MEAN CORPUSCULAR VOLUME 92 fl (80-97); MONOCYTES % (AUTO) 7.3 % (3-13); PLATELET COUNT 187 10^3/uL (150-450); RED BLOOD COUNT 4.39 10^6/uL (4.35-5.55); RED CELL DISTRIBUTION WIDTH 13.5 % (11.5-14.0); SEGMENTED NEUTROPHILS % (AUTO) 61.5 % (42-78); TOTAL CELLS COUNTED % (AUTO) 100 %; WHITE BLOOD COUNT 9.7 10^3/uL (4.0-10.5)
[2019-10-02 01:53] LABS: ALBUMIN 4.6 g/dL (3.5-5.0); ALKALINE PHOSPHATASE 53 U/L (38-126); ANION GAP 11 (5-19); ASPARTATE AMINO TRANSFERASE 19 U/L (17-59); BILIRUBIN,TOTAL 0.3 mg/dL (0.2-1.3); BLOOD UREA NITROGEN 8 mg/dL (7-20); CALCIUM 9.2 mg/dL (8.4-10.2); CARBON DIOXIDE 27 mmol/L (22-30); CHLORIDE 102 mmol/L (98-107); GLUCOSE 115 mg/dL (75-110); POTASSIUM 3.5 mmol/L (3.6-5.0); TOTAL PROTEIN 7.1 g/dL (6.3-8.2)
[2019-10-02 01:54] LABS: ACETAMINOPHEN < 10 ug/mL (10-30); ALCOHOL < 10 mg/dL (NONE DETECTED); SALICYLATE < 1.0 mg/dL (2.0-20.0)
[2019-10-02 02:18] LABS: APPEARANCE,URINE SLIGHTLY-CLOUDY; BILIRUBIN,URINE NEGATIVE (NEGATIVE); CALCIUM OXALATE CRYSTALS,URINE MODERATE /HPF; COLOR,URINE YELLOW; GLUCOSE, URINE NEGATIVE (NEGATIVE); KETONES,URINE NEGATIVE (NEGATIVE); LEUKOCYTE ESTERASE,URINE NEGATIVE (NEGATIVE); NITRITE,URINE NEGATIVE (NEGATIVE); PROTEIN,URINE NEGATIVE (NEGATIVE); URINE SPECIFIC GRAVITY 1.021; UROBILINOGEN,URINE NEGATIVE mg/dL (<2.0)
[2019-10-02 02:40] LABS: URINE AMPHETAMINES SCREEN NEGATIVE; URINE BARBITURATES SCREEN NEGATIVE; URINE BENZODIAZEPINES SCREEN NEGATIVE; URINE COCAINE SCREEN NEGATIVE; URINE MARIJUANA (THC) SCREEN NEGATIVE; URINE METHADONE SCREEN NEGATIVE; URINE PHENCYCLIDINE SCREEN NEGATIVE
[2019-10-02] MEDS ORDERED: NICOTINE 21 MG/24 HR PATCH.TD24 TD ONE (03:55)
--- NOTE | 2019-10-02 04:03 | ER Document Report ---
ED General - General TRAVEL OUTSIDE OF THE [place] IN LAST 30 DAYS: No - Related Data Home Medications: trazodone, gabapentin, zolapin, sapharis, propranolol, clonidine, cogentin <JANNA SUH - Last Filed: 10/02/19 03:58> <YUNIER DALE - Last Filed: 10/02/19 10:16> <MIYA DURAN - Last Filed: 10/02/19 10:43> - General Chief Complaint: Psych Problem Stated Complaint: PSYCH EVAL Time Seen by Provider: 10/02/19 01:10 Primary Care Provider: Demetri Roy [Outside] - Follow up as needed MURALI JULIEN MD [Primary Care Provider] - Follow up as needed - [facility] Notes: Mr. Ruiz is a 34-year-old male with a history of paranoid schizophrenia who was just released from inpatient psychiatry unit at [facility] now returning for evaluation of auditory and visual hallucinations and paranoia. Patient insists that he is fully compliant with all prescribed medications. He is currently living with his mother. He reports that he can hear his neighbors whispering about him and that he sees them running by the windows at night and feels that they are plotting to come into the house and harm him. He says he also smells cigarette smoke and knows that this is 1 of the neighbors lurking outside the house. Patient currently denies any suicidal or homicidal ideation. He admits past drug abuse but says at this time he is not using any street drugs. He also denies drinking any alcoholic beverages. (JANNA SUH) - Related Data Allergies/Adverse Reactions: chlorpromazine [From Thorazine] Allergy (Severe, Verified 09/01/19 02:20) Hives haloperidol [From Haldol] Allergy (Verified 05/01/19 02:07) risperidone [From Risperdal] Allergy (Verified 05/01/19 02:07) Past Medical History - General Information source: Patient, [facility] Records - Social History Smoking Status: Current Some Day Smoker Chew tobacco use (# tins/day): Yes Frequency of alcohol use: None Drug Abuse: Marijuana Family History: Reviewed & Not Pertinent Patient has suicidal ideation: No Patient has homicidal ideation: No Renal/ Medical History: Denies: Hx Peritoneal Dialysis Psychiatric Medical History: Reports: Hx Schizophrenia - with paranoia Past Surgical History: Reports: Hx Oral Surgery, Hx Orthopedic Surgery - left rotator cuff/labrum repair, Other - right orbital "blow out" repair - Immunizations Immunizations up to date: Yes Hx Diphtheria, Pertussis, Tetanus Vaccination: No <JANNA SUH - Last Filed: 10/02/19 03:58> Review of Systems <JANNA SUH - Last Filed: 10/02/19 03:58> - Review of Systems Notes: Constitutional: Negative for fever. HENT: Negative for sore throat. Eyes: Negative for visual changes. Cardiovascular: Negative for chest pain. Respiratory: Negative for shortness of breath. Gastrointestinal: Negative for abdominal pain, vomiting or diarrhea. Genitourinary: Negative for dysuria. Musculoskeletal: Negative for back pain. Skin: Negative for rash. Neurological: Negative for headaches, weakness or numbness. 10 point ROS negative except as marked above and in HPI. (JANNA SUH) Physical Exam <JANNA SUH - Last Filed: 10/02/19 03:58> - Vital signs Vitals: Temp Pulse Resp BP Pulse Ox 98.3 F 97 21 H 142/88 H 98 10/02/19 01:02 10/02/19 01:02 10/02/19 01:02 10/02/19 01:02 10/02/19 01:02 - Notes Notes: GENERAL: Well-developed well-nourished appearing in no acute distress. SKIN: Good turgor no rashes. HEAD: Normocephalic atraumatic. EYES: PERRLA. EOMI. Conjunctivae and sclerae clear. EARS: CANALS AND TMS CLEAR. NOSE: CLEAR. MOUTH: Moist mucosa. Good dentition. No stridor or edema. No drooling. NECK: Supple. No masses or thyromegaly. No adenopathy. Carotids 2+ without bruits. No JVD. BACK: Symmetrical without tenderness. CHEST: Respirations unlabored. Breath sounds clear and symmetrical. HEART: Regular rhythm. No murmur gallop or rub. ABDOMEN: Soft nontender without masses, organomegaly or rebound. Bowel sounds normally active. No bruits. GENITALIA: Deferred. EXTREMITIES: No edema. No calf tenderness. Cap refill less than 1.5 seconds. Dorsalis pedis and posterior tibial pulses 3+ and symmetrical. NEUROLOGICAL: GCS 15. Alert and oriented x3. Normal gait. Fluent speech. Cranial nerves II through XII intact. Sensorimotor and cerebellar normal. Normal tone. PSYCHIATRIC: Mildly anxious affect. Mild paranoia. Delusional thoughts. Patient denies experiencing any auditory or visual hallucinations here in the hospital but says that he feels "very safe" here and experiences these only when he is outside the hospital. (JANNA SUH) Course - Laboratory Result Diagrams: 10/02/19 01:07 10/02/19 01:07 <JANNA SUH - Last Filed: 10/02/19 03:58> - Laboratory Result Diagrams: 10/02/19 01:07 10/02/19 01:07 <YUNIER DALE - Last Filed: 10/02/19 10:16> - Laboratory Result Diagrams: 10/02/19 01:07 10/02/19 01:07 <MIYA DURAN - Last Filed: 10/02/19 10:43> - Re-evaluation Re-evalutation: 10/02/19 04:02 Tox screen is negative here. Patient appears medically stable. We will request consultation from behavioral health service. Patient does not meet criteria for involuntary commitment at this time. 10/02/19 04:03 (JANNA SUH) - Vital Signs Vital signs: Temp Pulse Resp BP Pulse Ox 98.4 F 77 18 135/77 H 96 10/02/19 10:00 10/02/19 10:00 10/02/19 10:00 10/02/19 10:00 10/02/19 10:00 - Laboratory Laboratory results interpreted by ri: 10/02/19 10/02/19 01:07 01:31 Potassium 3.5 L Glucose 115 H Urine Ascorbic Acid 40 H Salicylates < 1.0 L Acetaminophen < 10 L Discharge <JANNA SUH - Last Filed: 10/02/19 03:58> <YUNIER DALE - Last Filed: 10/02/19 10:16> <MIYA DURAN - Last Filed: 10/02/19 10:43> - Discharge Clinical Impression: Paranoid schizophrenia, chronic condition Condition: Stable Disposition: HOME, SELF-CARE Additional Instructions: You have been evaluated by both medical and behavioral health teams for psychosis and have been deemed appropriate for discharge. While you were in the Emergency Department you received the following services: medical, psychiatric/psychological, pharmaceutical, dietary, nursing, health and safety coordinator and security, environmental in addition to psychoeducation and resources/referrals. You would greatly benefit from ACTT or [facility] services. Unfortunately, these referrals are not accepted by acute crisis providers, and must be submitted by your clinical home i.e. [facility]. Please continue your medications you were prescribed during your stay at [facility]. You are reminded to take medications as directed, to only take medications prescribed to you, and to not use any illegal substances Hallucinations You seem to be having hallucinations. Hallucinations are seeing, hearing, or feeling things that don't exist. These symptoms commonly occur with drug abuse and schizophrenia. Drugs like PCP, LSD, MDMA, peyote, and "psychedelic mushrooms" can cause frightening hallucinations. Users of methamphetamine or crack cocaine often see and feel bugs crawling on their skin. Patients with schizophrenia may hear voices that no one else can hear. The delusions of schizophrenia often involve conspiracies or relationships that are not real. When symptoms are due to drug abuse, the mental state usually improves as the drug wears off. Someone you trust should be with you until you are better, to protect you and calm your fears. Tranquilizer medicine is helpful at controlling hallucinations, anxiety, and deluded thoughts. Get a proper diet and enough sleep. Most patients do very well when they get proper medical treatment and social support. You should return at once if your symptoms get worse, if you are having suicidal thoughts or thoughts about hurting others, or if you feel that you are in danger. AT ANY TIME, IF YOUR SYMPTOMS CHANGE SIGNIFICANTLY OR WORSEN OR YOU DEVELOP NEW SYMPTOMS, RETURN TO THE EMERGENCY DEPARTMENT IMMEDIATELY FOR RE-EVALUATION. Referrals: MURALI JULIEN MD [Primary Care Provider] - Follow up as needed [facility] Gilda Roy [Outside] - Follow up as needed
--- NOTE | 2019-10-02 08:28 | PSYCHOLOGICAL NOTE ---
Psych Note - Psych Note Date seen by psych provider: 10/02/19 Time seen by psych provider: 07:50 Psych Note: Reason For Consult:Paranoia, A/V H Consent Permissions: Patient reports he only has experiences of hearing voices and fearing for his life when he is at home. He reports he saw someone walking outside with a weapon and hear voices saying "get him (the patient)...rape him...kill him." He states he is afraid when he is at home. He denies having any fight or disagreement with his mother (this is historically patient's trigger). He confirms he was discharged from [facility] yesterday and reports he tried calling his ACTT (assertive community treatment team) but there was no answer. After failing to get a hold of ACTT, his mother called 911 for him. He reports he would be interested on a correction or baptism home so he feels safe. Patient is alert and orientated to person, place, time and circumstance. Mood is anxious with congruent affect as evidenced by wringing his hands together, sweating, and some stuttering. Patient denies suicidal and homicidal ideation. Paranoid delusions are noted;thought content is focused on his beliefs. Patient reports auditory and visual hallucinations; however, he is currently not demonstrating any behaviours of responding to internal stimuli as evidenced by: Thought processes are organized and linear, Eye contact is well-maintained and Conversational speech is overall within normal rate, tone and prosody (there is some stuttering noted when talking about his paranoia and triggers). Intellectual abilities appear to be within the average range. Attention and concentration are good. Insight, judgment, impulse control are fair. Clinician contacted [facility] to discuss what patient's plan for discharge was for their facility. Patient was discharged at about 1pm yesterday afternoon from [facility]. At time of discharge, is mood was euthymic with congruent affect; there was not any indications of paranoia or distress in behavior or disclosed by patient. Supervising Nurse, Shreya, reports the patient has baseline delusions of paranoia. She reports the patient disclosed understanding his thoughts are not "real" and that his plan [facility]. She confirms the patient disclosed having ACTT to them also; however, she is are unaware of who submitted an ACTT referral. At this time it appears the patient does not have ACTT. Clinician team at [facility] agrees the patient would greatly benefit from ACTT or [facility] (community support team). Attempted contact with patient's mother; left voice mail. Impression\\plan: Patient is cleared from acute psychiatric services. Patient was just released from a higher level acute inpatient yesterday from [facility] after medication stabilization. Patient has baseline paranoid delusions do cumented both with [facility] and [facility]. Patient is reminded to use positive coping skills and to continue taking medications as directed. Patient does identify difficulty in redirecting his thoughts, typically in the evenings. He is asking for higher level outpatient assistance such as a correction. Patient identifies having ACTT; however, there is no indication the patient is signed up for this service. It is believed at this time he is referring to [facility] crisis not [facility]. It is believed the patient would greatly benefit from ACTT or [facility] services. Unfortunately, these referrals are not accepted by acute crisis providers, and must be submitted by the patient's clinical home i.e. [facility]. Patient has been reminded to take medications as directed, to only take medications prescribed to him, and to not use any illegal substances (patient has a history of substance abuse, current toxicology is clear). Dr. Esteves was consulted to care management of this patient; attending physicians in agreement with recommendations and disposition.
--- NOTE | 2019-10-02 10:43 | EKG REPORT ---
SEVERITY:- NORMAL ECG - SINUS RHYTHM : Confirmed by: Danay Paige 02-Oct-2019 10:42:29
[2019-10-02 10:57] VITALS: BP 140/84
--- NOTE | 2019-10-02 10:57 | ER Document Report ---
Doctor's Note Notes: 10/02/19 10:54 Patient is a 34-year-old male who was evaluated in the emergency department by Dr. Espino and was medically cleared as well as clearance by mental health. I did evaluate the patient prior to discharge. He denies current hallucinations, suicidal ideation or homicidal ideation. Patient was provided resources by [facility] and made aware that they can make referrals to ACTT and other resources for him. Patient verbalizes understanding. Patient reports he does have his medications at home and does live with his mother. Patient denies questions at this time and is stable for discharge.
== END 2019-10-02 10:58 | disposition home or self-care (01) ==
LOC: ER 00:56
DX: F20.0 Paranoid schizophrenia (principal); F17.200 Nicotine dependence, unspecified, uncomplicated; F12.10 Cannabis abuse, uncomplicated; Z79.899 Other long term (current) drug therapy; Z88.8 Allergy status to other drugs, medicaments and biological substances
CPT/HCPCS: 93005; 99285; 36415; 80307 ×4; 85025; 80053; 81001; 93010; A9270

== ENCOUNTER 2019-10-13 19:38 | Emergency (ER) | payer MEDICARE, MEDICAID ==
[2019-10-13] MEDS ORDERED: ZIPRASIDONE MESYLATE INJ/PF 20 MG SDV IM ONE (20:57)
[2019-10-13] MEDS ORDERED: LORAZEPAM INJ 2 MG/1 ML VIAL IM ONE (20:57)
[2019-10-13 21:12] LABS: ABSOLUTE LYMPHOCYTES (AUTO) 1.8 10^3/uL (0.5-4.7); ABSOLUTE MONOCYTES (AUTO) 1.1 10^3/uL (0.1-1.4); ABSOLUTE NEUT (AUTO) 11.4 10^3/uL (1.7-8.2); BASOPHILS % (AUTO) 0.2 % (0-2); EOSINOPHILS % (AUTO) 0.2 % (0-6); HEMATOCRIT 41.4 % (37.9-51.0); HEMOGLOBIN 14.6 g/dL (13.5-17.0); LYMPHOCYTES % (AUTO) 12.4 % (13-45); MEAN CORPUSCULAR HEMOGLOBIN 32.2 pg (27.0-33.4); MEAN CORPUSCULAR HGB CONC 35.2 g/dL (32.0-36.0); MEAN CORPUSCULAR VOLUME 91 fl (80-97); MONOCYTES % (AUTO) 7.9 % (3-13); PLATELET COUNT 195 10^3/uL (150-450); RED BLOOD COUNT 4.53 10^6/uL (4.35-5.55); RED CELL DISTRIBUTION WIDTH 13.2 % (11.5-14.0); SEGMENTED NEUTROPHILS % (AUTO) 79.3 % (42-78); TOTAL CELLS COUNTED % (AUTO) 100 %; WHITE BLOOD COUNT 14.3 10^3/uL (4.0-10.5)
[2019-10-13 21:34] LABS: ALBUMIN 4.6 g/dL (3.5-5.0); ALKALINE PHOSPHATASE 59 U/L (38-126); ANION GAP 13 (5-19); ASPARTATE AMINO TRANSFERASE 36 U/L (17-59); BILIRUBIN,DIRECT 0.4 mg/dL (0.0-0.4); BILIRUBIN,TOTAL 0.5 mg/dL (0.2-1.3); BLOOD UREA NITROGEN 9 mg/dL (7-20); CALCIUM 9.5 mg/dL (8.4-10.2); CARBON DIOXIDE 29 mmol/L (22-30); CHLORIDE 100 mmol/L (98-107); GLUCOSE 112 mg/dL (75-110); POTASSIUM 3.6 mmol/L (3.6-5.0); TOTAL PROTEIN 7.6 g/dL (6.3-8.2)
[2019-10-13 21:36] LABS: ACETAMINOPHEN < 10 ug/mL (10-30); ALCOHOL < 10 mg/dL (NONE DETECTED); SALICYLATE < 1.0 mg/dL (2.0-20.0)
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
[2019-10-14] MEDS ORDERED: LORAZEPAM INJ 2 MG/1 ML VIAL IM ONE (04:48)
[2019-10-14] MEDS ORDERED: ZIPRASIDONE MESYLATE INJ/PF 20 MG SDV IM ONE (06:35)
[2019-10-14 06:45] LABS: APPEARANCE,URINE CLOUDY; BILIRUBIN,URINE NEGATIVE (NEGATIVE); COLOR,URINE YELLOW; GLUCOSE, URINE NEGATIVE (NEGATIVE); KETONES,URINE TRACE mg/dL (NEGATIVE); LEUKOCYTE ESTERASE,URINE NEGATIVE (NEGATIVE); NITRITE,URINE NEGATIVE (NEGATIVE); PROTEIN,URINE 100 mg/dL (NEGATIVE); URINE SPECIFIC GRAVITY 1.023; UROBILINOGEN,URINE NEGATIVE mg/dL (<2.0)
[2019-10-14 06:59] LABS: URINE BARBITURATES SCREEN NEGATIVE; URINE BENZODIAZEPINES SCREEN NEGATIVE; URINE COCAINE SCREEN NEGATIVE; URINE MARIJUANA (THC) SCREEN NEGATIVE; URINE METHADONE SCREEN NEGATIVE; URINE PHENCYCLIDINE SCREEN NEGATIVE
[2019-10-14 07:00] LABS: URINE AMPHETAMINES SCREEN UNCONFIRMED POSITIVE
[2019-10-14] MEDS ORDERED: NICOTINE 21 MG/24 HR PATCH.TD24 TD ONE (07:13)
--- NOTE | 2019-10-14 07:28 | EKG REPORT ---
SEVERITY:- DEFECTIVE ECG - SINUS TACHYCARDIA. BORDERLINE INFERIOR Q WAVES : Confirmed by: Greyson Machuca MD 14-Oct-2019 07:28:21
--- NOTE | 2019-10-14 07:28 | EKG REPORT ---
SEVERITY:- OTHERWISE NORMAL ECG - SINUS TACHYCARDIA : Confirmed by: Greyson Machuca MD 14-Oct-2019 07:28:37
[2019-10-14 13:10] VITALS: BP 137/87
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
== END 2019-10-14 13:22 | disposition home or self-care (01) ==
LOC: ER 19:38
DX: F20.0 Paranoid schizophrenia (principal); R61 Generalized hyperhidrosis; R45.850 Homicidal ideations; F90.9 Attention-deficit hyperactivity disorder, unspecified type; Z79.899 Other long term (current) drug therapy; R00.0 Tachycardia, unspecified; Z88.8 Allergy status to other drugs, medicaments and biological substances
CPT/HCPCS: 93005 ×2; 99285; 96372; 36415; 80307 ×4; 85025; 80053; 81001; 93010 ×2; J2060 ×2; J3486 ×2; A9270

== ENCOUNTER 2019-10-14 15:38 | Emergency (ER) | payer MEDICARE, MEDICAID ==
[2019-10-14 15:54] VITALS: BP 156/91
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
== END 2019-10-14 17:21 ==
LOC: ER 15:38
DX: F20.9 Schizophrenia, unspecified (principal)
CPT/HCPCS: 99284

== ENCOUNTER 2020-01-19 17:43 | Emergency (ER) | payer MEDICARE, MEDICAID ==
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
[2020-01-19 19:03] LABS: ABSOLUTE EOSINOPHILS # (AUTO) 0.2 10^3/uL (0.0-0.6); ABSOLUTE LYMPHOCYTES (AUTO) 1.5 10^3/uL (0.5-4.7); ABSOLUTE MONOCYTES (AUTO) 0.9 10^3/uL (0.1-1.4); ABSOLUTE NEUT (AUTO) 6.4 10^3/uL (1.7-8.2); BASOPHILS % (AUTO) 0.4 % (0-2); EOSINOPHILS % (AUTO) 2.3 % (0-6); HEMATOCRIT 45.8 % (37.9-51.0); HEMOGLOBIN 15.9 g/dL (13.5-17.0); LYMPHOCYTES % (AUTO) 16.7 % (13-45); MEAN CORPUSCULAR HEMOGLOBIN 31.6 pg (27.0-33.4); MEAN CORPUSCULAR HGB CONC 34.7 g/dL (32.0-36.0); MEAN CORPUSCULAR VOLUME 91 fl (80-97); MONOCYTES % (AUTO) 10.2 % (3-13); PLATELET COUNT 178 10^3/uL (150-450); RED BLOOD COUNT 5.04 10^6/uL (4.35-5.55); RED CELL DISTRIBUTION WIDTH 12.7 % (11.5-14.0); SEGMENTED NEUTROPHILS % (AUTO) 70.4 % (42-78); TOTAL CELLS COUNTED % (AUTO) 100 %
[2020-01-19 19:30] LABS: ALBUMIN 5.1 g/dL (3.5-5.0); ALKALINE PHOSPHATASE 67 U/L (38-126); ANION GAP 8 (5-19); ASPARTATE AMINO TRANSFERASE 24 U/L (17-59); BILIRUBIN,TOTAL 0.4 mg/dL (0.2-1.3); BLOOD UREA NITROGEN 9 mg/dL (7-20); CALCIUM 9.9 mg/dL (8.4-10.2); CARBON DIOXIDE 31 mmol/L (22-30); CHLORIDE 101 mmol/L (98-107); GLUCOSE 102 mg/dL (75-110); SALICYLATE 1.4 mg/dL (2.0-20.0); TOTAL PROTEIN 8.1 g/dL (6.3-8.2)
[2020-01-19 19:39] LABS: ACETAMINOPHEN < 10 ug/mL (10-30); ALCOHOL < 10 mg/dL (NONE DETECTED)
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
--- NOTE | 2020-01-19 20:31 | EKG REPORT ---
SEVERITY:- OTHERWISE NORMAL ECG - SINUS RHYTHM BORDERLINE LEFT AXIS DEVIATION : Confirmed by: Kaitlin Francois MD 19-Jan-2020 20:30:55
[2020-01-19 21:11] VITALS: BP 143/90
== END 2020-01-19 22:19 | disposition home or self-care (01) ==
LOC: ER 17:43
DX: F12.10 Cannabis abuse, uncomplicated (principal); F11.23 Opioid dependence with withdrawal; F20.0 Paranoid schizophrenia; F17.200 Nicotine dependence, unspecified, uncomplicated; Z79.899 Other long term (current) drug therapy; R61 Generalized hyperhidrosis; R11.0 Nausea; M79.10 Myalgia, unspecified site; Z88.8 Allergy status to other drugs, medicaments and biological substances
CPT/HCPCS: 36415; 80053; 80307; 85025; 93005; 93010; 99283

== ENCOUNTER 2020-03-06 13:34 | Emergency (ER) | payer MEDICARE, MEDICAID ==
[2020-03-06 13:50] VITALS: BP 106/73
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
== END 2020-03-06 16:42 | disposition home or self-care (01) ==
LOC: ER 13:34
DX: S80.212A Abrasion, left knee, initial encounter (principal); S80.211A Abrasion, right knee, initial encounter; S00.91XA Abrasion of unspecified part of head, initial encounter; M79.641 Pain in right hand; M79.89 Other specified soft tissue disorders; R00.0 Tachycardia, unspecified; Y04.0XXA Assault by unarmed brawl or fight, initial encounter; Z88.8 Allergy status to other drugs, medicaments and biological substances
CPT/HCPCS: 99284

== ENCOUNTER 2020-03-13 19:29 | Emergency (ER) | payer MEDICARE, MEDICAID ==
[2020-03-13 20:10] LABS: ABSOLUTE LYMPHOCYTES (AUTO) 0.8 10^3/uL (0.5-4.7); ABSOLUTE MONOCYTES (AUTO) 0.8 10^3/uL (0.1-1.4); ABSOLUTE NEUT (AUTO) 7.6 10^3/uL (1.7-8.2); BASOPHILS % (AUTO) 0.1 % (0-2); EOSINOPHILS % (AUTO) 0.1 % (0-6); HEMATOCRIT 41.7 % (37.9-51.0); HEMOGLOBIN 14.1 g/dL (13.5-17.0); LYMPHOCYTES % (AUTO) 8.7 % (13-45); MEAN CORPUSCULAR HEMOGLOBIN 31.2 pg (27.0-33.4); MEAN CORPUSCULAR HGB CONC 33.8 g/dL (32.0-36.0); MEAN CORPUSCULAR VOLUME 92 fl (80-97); MONOCYTES % (AUTO) 8.3 % (3-13); PLATELET COUNT 269 10^3/uL (150-450); RED BLOOD COUNT 4.52 10^6/uL (4.35-5.55); RED CELL DISTRIBUTION WIDTH 14.1 % (11.5-14.0); SEGMENTED NEUTROPHILS % (AUTO) 82.8 % (42-78); TOTAL CELLS COUNTED % (AUTO) 100 %; WHITE BLOOD COUNT 9.1 10^3/uL (4.0-10.5)
[2020-03-13 20:21] LABS: ACETAMINOPHEN < 10 ug/mL (10-30); ALBUMIN 4.8 g/dL (3.5-5.0); ALCOHOL < 10 mg/dL (NONE DETECTED); ALKALINE PHOSPHATASE 65 U/L (38-126); ANION GAP 8 (5-19); ASPARTATE AMINO TRANSFERASE 38 U/L (17-59); BILIRUBIN,DIRECT 0.1 mg/dL (0.0-0.4); BILIRUBIN,TOTAL 0.7 mg/dL (0.2-1.3); BLOOD UREA NITROGEN 13 mg/dL (7-20); CALCIUM 9.6 mg/dL (8.4-10.2); CARBON DIOXIDE 29 mmol/L (22-30); CHLORIDE 102 mmol/L (98-107); GLUCOSE 124 mg/dL (75-110); POTASSIUM 4.1 mmol/L (3.6-5.0); SALICYLATE < 1.0 mg/dL (2.0-20.0); TOTAL PROTEIN 7.6 g/dL (6.3-8.2)
[2020-03-13] MEDS ORDERED: ACETAMINOPHEN 325 MG TABLET PO ONE (21:51)
[2020-03-13] MEDS ORDERED: IBUPROFEN 600 MG TABLET PO ONE (21:51)
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
--- NOTE | 2020-03-14 01:15 | EKG REPORT ---
SEVERITY:- NORMAL ECG - SINUS RHYTHM : Confirmed by: Kaitlin Francois MD 14-Mar-2020 01:13:48
[2020-03-14] MEDS ORDERED: IBUPROFEN 600 MG TABLET PO ONE (04:48)
[2020-03-14] MEDS ORDERED: ACETAMINOPHEN 325 MG TABLET PO ONE ×2 (04:48→21:55)
[2020-03-14] MEDS ORDERED: OLANZAPINE INJ/PF 10 MG SDV IM ONE (04:55)
[2020-03-14 11:57] LABS: APPEARANCE,URINE CLEAR; BILIRUBIN,URINE NEGATIVE (NEGATIVE); COLOR,URINE COLORLESS; GLUCOSE, URINE NEGATIVE (NEGATIVE); KETONES,URINE NEGATIVE (NEGATIVE); LEUKOCYTE ESTERASE,URINE NEGATIVE (NEGATIVE); NITRITE,URINE NEGATIVE (NEGATIVE); PROTEIN,URINE NEGATIVE (NEGATIVE); URINE SPECIFIC GRAVITY 1.001; UROBILINOGEN,URINE NEGATIVE mg/dL (<2.0)
[2020-03-14 12:11] LABS: URINE AMPHETAMINES SCREEN NEGATIVE; URINE BENZODIAZEPINES SCREEN NEGATIVE; URINE COCAINE SCREEN NEGATIVE; URINE MARIJUANA (THC) SCREEN NEGATIVE; URINE METHADONE SCREEN NEGATIVE; URINE PHENCYCLIDINE SCREEN NEGATIVE
[2020-03-14 12:12] LABS: URINE BARBITURATES SCREEN NEGATIVE
--- NOTE | 2020-03-14 12:20 | ER Document Report ---
Doctor's Note Notes: 03/14/20 12:18 PHYSICAL EXAMINATION: GENERAL: Well-appearing and in no acute distress. HEAD: Atraumatic, normocephalic. EYES: sclera anicteric, conjunctiva are normal. ENT: nares patent. Moist mucous membranes. NECK: Normal range of motion, supple without lymphadenopathy LUNGS: CTAB and equal. No wheezes rales or rhonchi. HEART: Regular rate and rhythm without murmurs EXTREMITIES: Normal range of motion, no pitting edema. No cyanosis. BACK: No CVA tenderness NEUROLOGICAL: Cranial nerves grossly intact. Normal speech. Normal gait. PSYCH: Normal mood, normal affect. SKIN: Warm, Dry, normal turgor Patient awaiting for urinalysis results, urine specimen has been provided. Patient is requesting his usual daily medications at this time. Patient otherwise appears medically stable for discharge or transfer pending behavioral health team evaluation.
[2020-03-14] MEDS: PROPRANOLOL HCL 20 MG TABLET PO SCH ×2 (13:41→21:42)
[2020-03-14] MEDS: GABAPENTIN 400 MG CAPSULE PO SCH ×2 (13:57→18:32)
--- NOTE | 2020-03-14 18:50 | PSYCHOLOGICAL NOTE ---
Psych Note - Psych Note Date seen by psych provider: 03/14/20 Time seen by psych provider: 10:25 Psych Note: Reason for Consult: psychosis Impression/plan: Patient is recommended for IVC. Patient reports he stopped taking his medications " because they didn't work." He demonstrates difficulty in communicating and has rambling speech. Patient's toxicology screen is clean. Patient will be observed overnight to ensure the patient is not under the influence of a substance not screened by toxicology. Patient will be evaluated. Dr. Esteves was consulted to care management of this patient; attending physicians in agreement with recommendations and disposition.
[2020-03-14] MEDS ORDERED: NICOTINE 21 MG/24 HR PATCH.TD24 TD ONE (19:59)
[2020-03-15] MEDS ORDERED: IBUPROFEN 600 MG TABLET PO ONE (05:41)
[2020-03-15] MEDS: PROPRANOLOL HCL 20 MG TABLET PO SCH (10:10)
[2020-03-15] MEDS: GABAPENTIN 400 MG CAPSULE PO SCH (10:10)
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
[2020-03-15] MEDS ORDERED: NICOTINE 21 MG/24 HR PATCH.TD24 TD ONE (12:10)
--- NOTE | 2020-03-15 12:15 | ER Document Report ---
Doctor's Note Notes: Patients nicotine patch fell off in shower. Provided order to nurse to order another one. Patient's vital signs are previous labs, diagnostic imaging reviewed. Reviewed mental health notes, nurses notes and previous vital signs. Patient is in no distress at this time denies any SI or HI. Denies any additional symptoms at this time. General: alert, oriented Heart: The rate rhythm, no murmurs rubs or gallops. Lungs: Clear to auscultation bilaterally Psych: Twitching his fingers. Poor eye contact. Stuttering. A&P: Pending recommendation from mental health. Patient remains medically cleared. 03/15/20 12:13
--- NOTE | 2020-03-15 13:34 | ER Document Report ---
Doctor's Note Notes: 03/15/20 13:33 Patient is cleared medically. Has been cleared by mental health. He is good for discharge.
[2020-03-15 13:46] VITALS: BP 129/80
== END 2020-03-15 13:40 | disposition home or self-care (01) ==
LOC: ER 19:29
DX: F22 Delusional disorders (principal); R25.3 Fasciculation; F80.81 Childhood onset fluency disorder; R45.851 Suicidal ideations; L53.9 Erythematous condition, unspecified; R52 Pain, unspecified; Y09 Assault by unspecified means; Z88.8 Allergy status to other drugs, medicaments and biological substances; Z87.891 Personal history of nicotine dependence
CPT/HCPCS: 93005; 99285; 96372; 36415; 80307 ×4; 85025; 80053; 81001; 93010; A9270 ×9; J3490

== ENCOUNTER 2020-06-21 00:39 | Emergency (ER) | payer MEDICARE, MEDICAID ==
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
[2020-06-21 02:00] LABS: ABSOLUTE BASOPHILS # (AUTO) 0.1 10^3/uL (0.0-0.2); ABSOLUTE EOSINOPHILS # (AUTO) 0.2 10^3/uL (0.0-0.6); ABSOLUTE LYMPHOCYTES (AUTO) 2.9 10^3/uL (0.5-4.7); ABSOLUTE NEUT (AUTO) 8.1 10^3/uL (1.7-8.2); BASOPHILS % (AUTO) 0.4 % (0-2); EOSINOPHILS % (AUTO) 1.4 % (0-6); HEMATOCRIT 39.5 % (37.9-51.0); HEMOGLOBIN 13.5 g/dL (13.5-17.0); LYMPHOCYTES % (AUTO) 23.5 % (13-45); MEAN CORPUSCULAR HEMOGLOBIN 31.2 pg (27.0-33.4); MEAN CORPUSCULAR HGB CONC 34.1 g/dL (32.0-36.0); MEAN CORPUSCULAR VOLUME 92 fl (80-97); MONOCYTES % (AUTO) 7.9 % (3-13); PLATELET COUNT 205 10^3/uL (150-450); RED BLOOD COUNT 4.31 10^6/uL (4.35-5.55); SEGMENTED NEUTROPHILS % (AUTO) 66.8 % (42-78); TOTAL CELLS COUNTED % (AUTO) 100 %; WHITE BLOOD COUNT 12.2 10^3/uL (4.0-10.5)
[2020-06-21 02:14] LABS: APPEARANCE,URINE CLEAR; BILIRUBIN,URINE NEGATIVE (NEGATIVE); COLOR,URINE YELLOW; GLUCOSE, URINE NEGATIVE (NEGATIVE); KETONES,URINE NEGATIVE (NEGATIVE); LEUKOCYTE ESTERASE,URINE NEGATIVE (NEGATIVE); NITRITE,URINE NEGATIVE (NEGATIVE); PROTEIN,URINE NEGATIVE (NEGATIVE); URINE SPECIFIC GRAVITY 1.011; UROBILINOGEN,URINE NEGATIVE mg/dL (<2.0)
[2020-06-21 02:19] LABS: URINE AMPHETAMINES SCREEN NEGATIVE; URINE BARBITURATES SCREEN NEGATIVE; URINE BENZODIAZEPINES SCREEN NEGATIVE; URINE COCAINE SCREEN NEGATIVE; URINE METHADONE SCREEN NEGATIVE; URINE PHENCYCLIDINE SCREEN NEGATIVE
[2020-06-21 02:20] LABS: ALBUMIN 4.4 g/dL (3.5-5.0); ALKALINE PHOSPHATASE 76 U/L (38-126); ANION GAP 12 (5-19); ASPARTATE AMINO TRANSFERASE 19 U/L (17-59); BILIRUBIN,DIRECT 0.1 mg/dL (0.0-0.4); BILIRUBIN,TOTAL 0.2 mg/dL (0.2-1.3); BLOOD UREA NITROGEN 12 mg/dL (7-20); CALCIUM 8.9 mg/dL (8.4-10.2); CARBON DIOXIDE 25 mmol/L (22-30); CHLORIDE 108 mmol/L (98-107); GLUCOSE 100 mg/dL (75-110)
[2020-06-21 02:25] LABS: URINE MARIJUANA (THC) SCREEN NEGATIVE
[2020-06-21 02:28] LABS: ACETAMINOPHEN < 10 ug/mL (10-30); ALCOHOL < 10 mg/dL (NONE DETECTED); SALICYLATE < 1.0 mg/dL (2.0-20.0)
[2020-06-21] MEDS ORDERED: ACETAMINOPHEN 325 MG TABLET PO ONE ×2 (06:08→11:24)
[2020-06-21] MEDS ORDERED: NICOTINE 14 MG/24 HR PATCH.TD24 TD ONE (06:17)
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
--- NOTE | 2020-06-21 11:22 | ER Document Report ---
Doctor's Note Notes: 06/21/20 11:21 Patient reevaluated at this time. He is asking for Tylenol for his elbow pain. This will be ordered. He has been cleared by mental health. He is medically cleared. He is stable for discharge at this time.
[2020-06-21 11:42] VITALS: BP 118/52
--- NOTE | 2020-06-21 17:46 | EKG REPORT ---
SEVERITY:- NORMAL ECG - SINUS RHYTHM : Confirmed by: Danay Paige 21-Jun-2020 17:46:08
== END 2020-06-21 11:56 | disposition home or self-care (01) ==
LOC: ER 00:39
DX: S50.02XA Contusion of left elbow, initial encounter (principal); S53.402A Unspecified sprain of left elbow, initial encounter; F22 Delusional disorders; X58.XXXA Exposure to other specified factors, initial encounter; F17.200 Nicotine dependence, unspecified, uncomplicated
CPT/HCPCS: 93005; 99285; 36415; 80307 ×4; 85025; 80053; 81001; 73070; 93010; A9270 ×2